=== PATIENT | female | born 1965 | race Caucasian/White ===

== ENCOUNTER 2019-07-29 07:11 | Inpatient (IN) | payer MEDICAID ==
[~2019-07-29 07:11] MED LIST: Acetaminophen 500 MG Tab PO ONE; Gabapentin 300 MG Cap PO ONE; Scopolamine 1.5 MG Transdermal Patch TRDERM ONE
[2019-07-29] MEDS: Lactated Ringers 1,000 ML IV SCH ×2 (08:30→18:46)
[2019-07-29] MEDS ORDERED: Tranexamic Acid 3,000 MG, Sodium Chloride 0.9% 100 ML IRR ONE ×2 (09:00)
[2019-07-29] MEDS ORDERED: Clindamycin in 0.9 % Sod Chlor 600 MG/50 ML BAG IV ONE (09:00)
[2019-07-29] MEDS ORDERED: Ropivacaine 49.25 ML, Ketorolac 30 MG, EPINEPHrine 0.5 MG, cloNIDine 80 MCG, Sodium Chl... INJECT SCH ×5 (09:00)
[2019-07-29] MEDS ORDERED: ceFAZolin 2 GM in Premix Bag 1 BAG IV ONE ×4 (09:00)
[2019-07-29] MEDS ORDERED: Ondansetron 4 MG/2 ML SDV IVPUSH PRN (09:26)
[2019-07-29] MEDS ORDERED: Zolpidem 5 MG Tab PO PRN (09:26)
[2019-07-29] MEDS ORDERED: Sodium Chloride 0.9% 10 ML Syringe FLUSH PRN (09:26)
[2019-07-29] MEDS ORDERED: Sennosides 8.6 MG Tab PO PRN (09:26)
[2019-07-29] MEDS ORDERED: Naloxone 0.4 MG/ML SDV IVPUSH PRN (09:26)
[2019-07-29] MEDS ORDERED: Albuterol 8 GM Inhaler INH PRN (09:31)
[2019-07-29] MEDS ORDERED: FLU Vacc QS2019-20(6MOS+)/PF 60 MCG/0.5 ML SYRINGE IM ONE (10:00)
[2019-07-29] MEDS ORDERED: THROMBIN 5000 UNIT ONE (12:00)
[2019-07-29] MEDS ORDERED: fentaNYL 25 MCG/HR Transdermal Patch TRDERM ONE (13:24)
[2019-07-29] MEDS ORDERED: Succinylcholine 200 MG/10 ML MDV IV ONE (13:24)
[2019-07-29] MEDS ORDERED: Phenylephrine 1% 10 MG/ML SDV IV ONE (13:24)
[2019-07-29] MEDS ORDERED: Midazolam 1 MG/ML 2 ML SDV IV ONE (13:24)
[2019-07-29] MEDS ORDERED: Ondansetron 4 MG/2 ML SDV IVPUSH ONE (13:24)
[2019-07-29] MEDS ORDERED: Glycopyrrolate 0.2 MG/ML 5 ML MDV IV ONE (13:24)
[2019-07-29] MEDS ORDERED: Neostigmine Methylsulfate 10 MG/10 ML MDV IVPUSH ONE (13:24)
[2019-07-29] MEDS ORDERED: Ketamine 500 mg/10 ML MDV IV ONE (13:24)
[2019-07-29] MEDS ORDERED: HYDROmorphone 2 MG/ML SDV IV ONE (13:24)
[2019-07-29] MEDS ORDERED: Propofol 200 MG/20 ML SDV IV ONE (13:24)
[2019-07-29] MEDS ORDERED: Dexamethasone 4 MG/ML 5 ML MDV IVPUSH ONE (13:24)
[2019-07-29] MEDS ORDERED: Rocuronium 100 MG/10 ML MDV IV ONE (13:24)
[2019-07-29] MEDS ORDERED: ePHEDrine 50 MG/ML SDV IV ONE (13:24)
[2019-07-29] MEDS ORDERED: Lactated Ringers 1,000 ML IV ONE (13:24)
[2019-07-29] MEDS ORDERED: Dexmedetomidine 200 MCG/2 ML SDV IV ONE (13:24)
--- NOTE | 2019-07-29 14:56 | PCM.OPNOTE ---
- General Post-Op/Procedure Note Date of Surgery/Procedure: 07/29/19 Operative Procedure(s): 1) posterolateral fusion L4-5, L5-S1. 2) hardware placement posterior L4-5, L5-S1. 3) laminectomy L4-5. 4) bilateral facetectomy L4-5 Pre Op Diagnosis: 1) central and foraminal stenosis L4-5. 2) previous fusion L5 -S1. 3) right L4 radiculopathy Post-Op Diagnosis: Same Anesthesia Technique: General ET Tube Primary Surgeon: Keron Nuñez Compliance Representative: Mildred Banda EBL in mLs: 700 Drain/Tube Comments:: christian [id number] wound vac Complications: None Condition: Good
[2019-07-29] MEDS: Ketorolac 30 MG/ML SDV IVPUSH SCH ×2 (15:13→23:18)
[2019-07-29] MEDS: Acetaminophen 500 MG Tab PO SCH ×2 (16:30→21:25)
[2019-07-29] MEDS: Morphine 2 MG/ML Syringe IVPUSH PRN ×3 (16:34→23:53)
[2019-07-29] MEDS: Gabapentin 600 MG Tab PO SCH ×2 (16:34→21:25)
--- NOTE | 2019-07-29 17:40 | CR ---
INDICATION: Guidance for spinal fusion. C-ARM IN OR, LESS THAN ONE HOUR: 0.2 minutes C-arm fluoroscopy time was utilized in OR during spinal fusion. Frontal and lateral images were obtained and showed bilateral pedicle screws and rods with two rods and six screws appearing intact with no evidence of a definite complicating process. A disc spacer is noted at the L5-S1 level. Grade 1 to 2 spondylolisthesis is noted at L5-S1. No comparison x-rays were available. [facility]
[2019-07-29] MEDS: Acetaminophen/oxyCODONE 325-5 MG Tab PO PRN (18:46)
[2019-07-29] MEDS: ceFAZolin 1 GM Vial IVPUSH SCH (18:47)
[2019-07-30] MEDS: ceFAZolin 1 GM Vial IVPUSH SCH (01:59)
[2019-07-30] MEDS: Lactated Ringers 1,000 ML IV SCH ×2 (02:52→11:39)
[2019-07-30] MEDS: Acetaminophen 500 MG Tab PO SCH ×4 (04:48→21:54)
[2019-07-30] MEDS: Acetaminophen/oxyCODONE 325-5 MG Tab PO PRN ×4 (04:48→22:17)
[2019-07-30] MEDS: Morphine 2 MG/ML Syringe IVPUSH PRN ×4 (06:56→20:15)
--- NOTE | 2019-07-30 07:45 | OR ---
DATE OF OPERATION: 07/29/2019 SURGEON: Keron Nuñez DO PREOPERATIVE DIAGNOSIS: 1. Previous lumbar fusion, L5-S1. 2. Bilateral foraminal stenosis, L4-5. 3. Bilateral lateral recess stenosis, L4-5. 4. Central stenosis, L4-5. 5. Right L4 radiculopathy. POSTOPERATIVE DIAGNOSIS: 1. Previous lumbar fusion, L5-S1. 2. Bilateral foraminal stenosis, L4-5. 3. Bilateral lateral recess stenosis, L4-5. 4. Central stenosis, L4-5. 5. Right L4 radiculopathy. PROCEDURES: 1. Posterolateral fusion, L4-5 and L5-S1. 2. Instrumentation, L4-5 and L5-S1. 3. Lumbar decompression, L4-5. 4. Bilateral facetectomy, L4-5. SHELL MACHINE OPERATOR: Mildred Banda NP. Nurse practitioner, Mildred Banda NP, played an essential role in assisting in this case, helping to position the patient, retract structures as needed, as well as suturing and cutting sutures as indicated. Her presence improved patient's safety and decreased operative time. ANESTHESIA: General endotracheal intubation. FLUID: Lactated Ringer solution. ESTIMATED BLOOD LOSS: 700 mL. COMPLICATIONS: None. SPECIMEN: None. DISCHARGE DISPOSITION: Stable to PACU. INDICATIONS FOR PROCEDURE: The patient was seen preoperatively in the clinic. She had failed nonoperative treatment. Preoperative imaging confirmed the above- mentioned diagnosis. Risks and benefits of the procedure were explained to the patient, and informed consent was obtained. DETAILS OF PROCEDURE: The patient was seen preoperatively by myself and the Anesthesia staff in the preoperative holding area where the operative site was marked. She was brought to the operative suite by Anesthesia staff, where general anesthesia was administered. Neuromonitoring leads were placed preoperatively, and the baseline was normal. Sterile Prabhakar catheter was placed. The patient was then rolled into a prone position on a Varinder table with the head slightly elevated and the spine in the bed slightly flexed. The back was then prepped and draped in a sterile manner. A time-out was called identifying the correct patient, correct procedure, correct site, and the antibiotics had begun within appropriate period of time. Sterilely draped fluoroscopy unit then identified the pedicles of L4-L5 and L5- S1, as well as instrumentation. A midline incision was then made just proximal to the L4 and then down to the S1. Bleeding was controlled with Bovie electrocautery. Two cerebellars were used for initial retraction. The fascia was then incised with Bovie electrocautery. The L3 and L4 spinous processes were then identified. Bovie electrocautery was used with a Ramos for dissection over the L3 and L4 spinous processes, respective lamina, facets, and down to the transverse process of L4. We then went lateral to avoid any dural involvement and then encountered the screws at L4 and L5. I then used 65 and 55 mm Versa- Trac retractors and then cleaned soft tissue over the previous screws and rods and cleaned the soft tissue off the L4 vertebral body facet at L4-5 transverse processes. After this had been accomplished, I then drilled down the facets at L4-5 bilaterally and then placed pedicle screws using the Mayauard. These were 6.5 x 45 mm. These confirmed to be good placement on fluoroscopy. I then removed the previous Expedium screws at L5 and S1 and replaced those with Globus 6.5 x 40 screws at L5 and 6.5 x 35 mm screws at S1. After that had been accomplished, we focused on laminectomy. I saved all the bone for graft and then removed the entirety of the spinous processes of L4 and at the lamina and then very carefully removed the superior and inferior facet on the left and right L4-5. This was done with the drill, Kerrison rongeurs, and pituitaries. Unfortunately, the entire area was covered by scar tissue, which I believe was the result of the previous laminectomy and fusion. For this reason, I was unable to encounter disk space on the left to right. I did feel that my compression was adequate given the central decompression, as well as facetectomies. On the right side, I did encounter a small durotomy while using a Kerrison rongeur. I tucked one of the nerve roots back inside the durotomy defect and then closed with 7-0 [place]-Roberto in an interlocking manner. I then sprayed DuraSeal across this and did a Valsalva maneuver, which was negative. We then cleaned areas around our screws, which were Creo Amp, and then placed my tulips and then 55 mm rods bilaterally. These were 5.5 mm x 55 mm. We then tightened these to final tension and took final films. I then copiously irrigated with 3 L Betadine irrigation. I placed some Gelfoam powder in the wound plus 0.5 g of vancomycin under the fascia, and then placed copious amount of graft bilaterally. We then closed in a watertight manner the fascia with #1 Stratafix followed by another liter of Betadine-infused irrigation, periarticular injection, another 0.5 g of vancomycin, Stratafix, then 3-0 Stratafix followed by placement of a DIEUDONNE 10 x 20 cm wound VAC. The patient was allowed to awaken from general anesthesia and taken to the PACU in stable condition. /[id number] BS/MODL
[2019-07-30] MEDS: amLODIPine 2.5 MG Tab PO SCH (09:00)
[2019-07-30] MEDS: Atenolol 50 MG Tab PO SCH (09:00)
[2019-07-30] MEDS: Gabapentin 600 MG Tab PO SCH ×3 (09:20→20:12)
[2019-07-30] MEDS: DULoxetine 60 MG Cap PO SCH (09:20)
[2019-07-30] MEDS: LORazepam 1 MG Tab PO PRN (13:08)
--- NOTE | 2019-07-30 13:35 | PCM.PN ---
- General Info Date of Service: 07/30/19 Functional Status: Reports: Tolerating Diet Pain Score: 7 (catheter still in, not ambulating yet) - Review of Systems Pulmonary: Reports: No Symptoms Cardiovascular: Reports: No Symptoms Gastrointestinal: Reports: No Symptoms Musculoskeletal: Reports: Back Pain Skin: Reports: No Symptoms, Other (DIEUDONNE wound vac in place and functioning properly) Psychiatric: Reports: Anxiety (Very anxious about not ambulating yet.) - Patient Data Vitals - Most Recent: Last Vital Signs Temp 36.6 C 07/30/19 08:00 Pulse 97 07/30/19 09:00 Resp 16 07/30/19 08:00 BP 96/49 L 07/30/19 09:00 Pulse Ox 96 07/30/19 08:00 Weight - Most Recent: 57.924 kg I&O - Last 24 Hours: Intake & Output 07/29/19 07/30/19 07/30/19 22:59 06:59 14:59 Intake Total 1710 200 Output Total 1550 1050 Balance 160 -850 Lab Results Last 24 Hours: Laboratory Results - last 24 hr 07/30/19 07/30/19 Range/Units 06:30 06:30 WBC 12.3 H (4.5-12.0) X10-3/uL RBC 2.47 L (3.23-5.20) x10(6)uL Hgb 7.3 L (11.5-15.5) g/dL Hct 21.9 L* (30.0-51.3) % MCV 88.4 (80-96) fL MCH 29.6 (27.7-33.6) pg MCHC 33.4 (32.2-35.4) g/dL RDW 15.2 (11.5-15.5) % Plt Count 361 (125-369) X10(3)uL MPV 6.9 L (7.4-10.4) fL Add Manual Diff Yes Neutrophils % (Manual) 64 (46-82) % Band Neutrophils % 1 (0-6) % Lymphocytes % (Manual) 27 (13-37) % Monocytes % (Manual) 8 (4-12) % Sodium 146 H (135-145) mmol/L Potassium 4.5 (3.5-5.3) mmol/L Chloride 109 (100-110) mmol/L Carbon Dioxide 29 (21-32) mmol/L BUN 16 (7-18) mg/dL Creatinine 0.8 (0.55-1.02) mg/dL Est Cr Clr Drug Dosing 57.74 mL/min Estimated GFR (MDRD) > 60 (>60) BUN/Creatinine Ratio 20.0 (9-20) Glucose 104 (80-116) mg/dL Calcium 8.3 L (8.6-10.2) mg/dL Med Orders - Current: Current Medications Acetaminophen (Tylenol Extra Strength) 500 mg PO Q6H [facility] Last Admin: 07/30/19 09:20 Dose: 500 mg Albuterol (Ventolin Hfa) 0 gm INH Q4H PRN PRN Reason: Wheezing Amlodipine Besylate (Norvasc) 2.5 mg PO DAILY [facility] Last Admin: 07/30/19 09:00 Dose: Not Given Atenolol (Tenormin) 50 mg PO DAILY [facility] Last Admin: 07/30/19 09:00 Dose: Not Given Ropivacaine 49.25 ml/Ketorolac Tromethamine 30 mg/Epinephrine HCl 0.5 mg/ Clonidine HCl 80 mcg/ Sodium Chloride 48.45 ml 0 ml INJECT ASDIRECTED [facility] Last Admin: 07/29/19 12:20 Dose: 100 syringe Duloxetine HCl (Cymbalta) 60 mg PO DAILY [facility] Last Admin: 07/30/19 09:20 Dose: 60 mg Gabapentin (Neurontin) 600 mg PO TID [facility] Last Admin: 07/30/19 13:08 Dose: 600 mg Lorazepam (Ativan) 1 mg PO Q6H PRN PRN Reason: Anxiety Last Admin: 07/30/19 13:08 Dose: 1 mg Magnesium Hydroxide (Milk Of Magnesia) 30 ml PO BID PRN PRN Reason: Constipation Morphine Sulfate (Morphine) 2 mg IVPUSH Q2H PRN PRN Reason: PAIN Last Admin: 07/30/19 09:25 Dose: 2 mg Naloxone HCl (Narcan) 0.2 mg IVPUSH ONETIME PRN PRN Reason: Oversedation Ondansetron HCl (Zofran) 8 mg IVPUSH Q4H PRN PRN Reason: Nausea/Vomiting Oxycodone/Acetaminophen (Percocet 325-5 Mg) 1 tab PO Q4H PRN PRN Reason: moderate pain 4-6 Last Admin: 07/30/19 11:42 Dose: 1 tab Senna (Senna) 8.6 mg PO BID PRN PRN Reason: Constipation Sodium Chloride (Saline Flush) 10 ml FLUSH ASDIRECTED PRN PRN Reason: Keep Vein Open [facility] Zolpidem Tartrate (Ambien) 5 mg PO BEDTIME PRN PRN Reason: Sleep Discontinued Medications Acetaminophen (Tylenol Extra Strength) 1,000 mg PO ONETIME ONE Stop: 07/29/19 07:01 Last Admin: 07/29/19 08:58 Dose: 1,000 mg Cefazolin Sodium (Ancef) 1 gm IVPUSH Q8H [facility] Stop: 07/30/19 02:01 Last Admin: 07/30/19 01:59 Dose: 1 gm Tranexamic Acid 3,000 mg/ (Sodium Chloride 100 ml) 0 mg IRR ONETIME ONE Stop: 07/29/19 09:01 Last Admin: 07/29/19 12:23 Dose: 100 irr Gabapentin (Neurontin) 300 mg PO ONETIME ONE Stop: 07/29/19 07:01 Last Admin: 07/29/19 08:58 Dose: 300 mg Cefazolin Sodium/Dextrose 2 gm (/ Premix) 50 mls @ 100 mls/hr IV ONETIME ONE Stop: 07/29/19 09:29 Lactated Ringer's (Ringers, Lactated) 1,000 mls @ 125 mls/hr IV ASDIRECTED [facility] Last Admin: 07/30/19 11:39 Dose: 125 mls/hr Cefazolin Sodium/Dextrose 2 gm (/ Premix) 50 mls @ 100 mls/hr IV ONETIME ONE Stop: 07/29/19 09:29 Last Admin: 07/29/19 09:58 Dose: 100 mls/hr Influenza Virus Vaccine (Fluzone Quad [id number] Syringe) 60 mcg IM .ONCE ONE Stop: 07/29/19 10:01 Ketorolac Tromethamine (Toradol) 30 mg IVPUSH Q8H [facility] Stop: 07/29/19 23:16 Last Admin: 07/29/19 23:18 Dose: 30 mg Scopolamine (Transderm-Scop) 1.5 mg TRDERM ONETIME ONE Stop: 07/29/19 07:01 Last Admin: 07/29/19 08:58 Dose: 1.5 mg Thrombin (Thrombin-Jmi) 20,000 unit .XX .STK-MED ONE Stop: 07/29/19 13:47 Last Admin: 07/29/19 13:46 Dose: 20,000 unit Thrombin (Recothrom) 15,000 unit .XX .STK-MED ONE Stop: 07/29/19 12:01 Last Admin: 07/29/19 12:00 Dose: 15,000 unit - Exam General: Alert, Oriented, Cooperative HEENT: Pupils Equal Lungs: Clear to Auscultation, Normal Respiratory Effort Cardiovascular: Regular Rate, Regular Rhythm Back Exam: Paraspinal Tenderness (bilaterally, worse on the left with mild swelling and slightly more swelling on steph left than right), Vertebral Tenderness, Other (decreased range of motion related to post-op status) Extremities: Normal Inspection, Normal Range of Motion, Non-Tender, No Pedal Edema, Normal Capillary Refill, Other (No radiating leg pain today) Peripheral Pulses: 2+: Dorsalis Pedis (L), Dorsalis Pedis (R) Skin: Warm, Dry, Intact Wound/Incisions: Other (DIEUDONNE wound vac in place and appears to be functioning properly) Neurological: No New Focal Deficit, Strength Equal Bilateral (lower extremities- able to lift off the bed with good strength), Reflexes Equal Bilateral, Sensation Intact Psy/Mental Status: Alert, Anxious Sepsis Event Note - Evaluation Sepsis Screening Result: No Definite Risk - Focused Exam Vital Signs: Vital Signs Temp Temp Pulse Pulse Resp BP BP 07/30/19 09:00 97 96/49 L 07/30/19 08:00 36.6 C 97 16 96/64 07/30/19 04:45 37.2 C 90 16 95/64 Pulse Ox 07/30/19 09:00 07/30/19 08:00 96 07/30/19 04:45 94 L Date Exam was Performed: 07/30/19 Time Exam was Performed: 13:51 - Problem List & Annotations (1) Back pain SNOMED Code(s): 591198155 Code(s): M54.9 - DORSALGIA, UNSPECIFIED Status: Acute Current Visit: Yes Qualifiers: Back pain location: low back pain - Problem List Review Problem List Initiated/Reviewed/Updated: Yes - My Orders Last 24 Hours: My Active Orders 07/30/19 12:55 LORazepam [Ativan] 1 mg PO Q6H PRN - Assessment Assessment:: Patient did not tolerate ambulating during exam. Notified nursing not to have patient up until she has been seen by physical therapy and they have fitted her brace. Physical Therapy is also aware of this plan. Patient was very anxious after she was unable to take any steps and she felt like her legs buckled under her and has not been able to calm down afterward for 15-20 minutes; started oral Ativan PRN for anxiety; nursing and Dr. Nuñez notified. - Plan Plan:: No other changes to medications or treatment plan at this time. Wear LSO brace ( clarified correct brace with nursing and PT), take pain medication and ativan or valium as needed for anxiety.
[2019-07-30] MEDS: Sodium Chloride 0.9% 10 ML Syringe FLUSH PRN ×2 (14:31→20:16)
[2019-07-31] MEDS: Morphine 2 MG/ML Syringe IVPUSH PRN ×3 (00:01→21:33)
[2019-07-31] MEDS: Sodium Chloride 0.9% 10 ML Syringe FLUSH PRN ×3 (00:01→08:20)
[2019-07-31] MEDS: Acetaminophen/oxyCODONE 325-5 MG Tab PO PRN ×4 (03:05→17:09)
[2019-07-31] MEDS: Acetaminophen 500 MG Tab PO SCH ×4 (03:50→21:32)
[2019-07-31] MEDS ORDERED: Sodium Chloride 0.9% 250 ML IV SCH (07:45)
[2019-07-31] MEDS ORDERED: Vancomycin 1 GM SDV IV SCH (08:00)
[2019-07-31] MEDS: Vancomycin/Dextrose 5%-Water 200 ML IV SCH ×2 (08:19→19:32)
--- NOTE | 2019-07-31 09:26 | PCM.CONS ---
H&P History of Present Illness - General Date of Service: 07/31/19 Admit Problem/Dx: Admission Diagnosis/Problem Admission Diagnosis/Problem Lumbar spinal fusion Source of Information: Patient History Limitations: Reports: No Limitations - History of Present Illness Initial Comments - Free Text/Narative: This is a 53-year-old female patient that 2 days ago underwent a spinal fusion by Dr. Nuñez. She had a fever last night was some night sweats. This is the first time she's had anything like this. She states she does have some abdominal pain but has not moved her bowels. She has a history constipation with IBS and takes Lizzess for this issue. She is not currently on her medication. She denies sore throat, ear pain, nasal congestion, diarrhea, vaginal discharge this abnormal. She does have a cough. She is a smoker and is always has a cough she says is a little black. She's not smoked in about 3 weeks. She said when she was walking yesterday her legs gave out and since then she's had a little bit more back pain. She thinks the abdominal pain some constipation which is making the back pain little worse. She denies any rashes anywhere. The patient states she used to have frequent UTIs until she had hysterectomy at age 33. But she's been okay after that. Lower Back Pain Score (Numeric/FACES): 7 - Related Data Allergies/Adverse Reactions: Allergies Allergy/AdvReac Type Severity Reaction Status Date / Time amoxicillin [From Augmentin] Allergy Vomiting Verified 07/29/19 07:35 clavulanic acid Allergy Vomiting Verified 07/29/19 07:35 [From Augmentin] Home Medications: Home Meds Atenolol [Tenormin] 50 mg PO DAILY 07/25/19 [History] amLODIPine [Norvasc] 2.5 mg PO DAILY 07/25/19 [History] Albuterol [Ventolin HFA] 2 puff PO Q4HR PRN 07/29/19 [History] Clindamycin HCl 150 mg PO TID 07/29/19 [History] DULoxetine [Cymbalta] 60 mg PO DAILY 07/29/19 [History] Gabapentin [Neurontin] 600 mg PO TID 07/29/19 [History] Linaclotide [Linzess] 290 mcg PO DAILY 01/20/20 [History] Varenicline [Chantix] 1 mg PO BID 07/29/19 [History] Past Medical History Cardiovascular History: Reports: High Cholesterol, Hypertension Respiratory History: Reports: Bronchitis, Recurrent Gastrointestinal History: Reports: Irritable Bowel Syndrome [employer] History: Reports: - Infectious Disease History Infectious Disease History: Reports: Chicken Pox, Measles - Past Surgical History Female Surgical History: Reports: Section, Hysterectomy, Tubal Ligation, Other (See Below) Other Female Surgeries/Procedures: BLADDER SURGERIES X 3 ("TUBES PULLED TWICE , CUT ONCE) Musculoskeletal Surgical History: Reports: Other (See Below) Other Musculoskeletal Surgeries/Procedures:: FUSION LUMBAR THORACIC SPINE- TRANSFORAMINAL LUMBAR INTERBODY FUSION Social & Family History - Tobacco Use Smoking Status *Q: Former Smoker Years of Tobacco use: 40 Packs/Tins Daily: 1 Used Tobacco, but Quit: Yes Month/Year Tobacco Last Used: JULY 2019 Second Hand Smoke Exposure: Yes - Caffeine Use Caffeine Use: Reports: Soda - Recreational Drug Use Recreational Drug Use: Yes Drug Use in Last 12 Months: Yes Recreational Drug Type: Reports: Marijuana/Hashish Recreational Drug Use Frequency: Daily H&P Review of Systems - Review of Systems: Review Of Systems: See Below General: Reports: Fever, Night Sweats HEENT: Reports: No Symptoms Pulmonary: Reports: Cough, Sputum. Denies: Shortness of Breath Cardiovascular: Reports: No Symptoms Gastrointestinal: Reports: Constipation. Denies: Bloody Stool Genitourinary: Reports: No Symptoms Musculoskeletal: Reports: Back Pain Skin: Reports: No Symptoms Psychiatric: Reports: No Symptoms Neurological: Reports: No Symptoms Hematologic/Lymphatic: Reports: No Symptoms Immunologic: Reports: No Symptoms Exam - Exam Exam: See Below - Vital Signs Vital Signs: Last Vital Signs Temp 99.6 F 07/31/19 08:00 Pulse 118 H 07/31/19 08:00 Resp 16 07/31/19 08:00 BP 136/75 07/31/19 08:00 Pulse Ox 94 L 07/31/19 08:00 Weight: 127 lb 11.2 oz - Exam General: Alert, Oriented, Cooperative HEENT: Hearing Intact, Posterior Pharynx Clear, TMs Clear Neck: Supple, Trachea Midline Lungs: Clear to Auscultation, Normal Respiratory Effort. No: Crackles, Rales, Rhonchi Cardiovascular: Regular Rate, Regular Rhythm, Tachycardia. No: Systolic Murmur GI/Abdominal Exam: Distended, Other (General pain of discomfort without rebound or guarding. Pains, all over.) Back Exam: Normal Inspection Extremities: No Pedal Edema Skin: Other (The remove the wound VAC and the wound is healing nicely without any erythema or drainage). No: Rash Neurological: Normal Speech, Normal Tone Neuro Extensive - Mental Status: Alert, Oriented x3, Normal Mood/Affect, Normal Cognition, Memory Intact Psychiatric: Alert, Normal Affect, Normal Mood - Patient Data Lab Results Last 24 hrs: Laboratory Results - last 24 hr 07/29/19 07/31/19 07/31/19 Range/Units 08:20 06:10 06:10 WBC 13.2 H (4.5-12.0) X10-3/uL RBC 2.63 L (3.23-5.20) x10(6)uL Hgb 7.7 L (11.5-15.5) g/dL Hct 23.2 L (30.0-51.3) % MCV 88.1 (80-96) fL MCH 29.3 (27.7-33.6) pg MCHC 33.2 (32.2-35.4) g/dL RDW 16.0 H (11.5-15.5) % Plt Count 361 (125-369) X10(3)uL MPV 7.2 L (7.4-10.4) fL Neut % (Auto) 83.3 H (46-82) % Lymph % (Auto) 10.9 L (13-37) % [place] % (Auto) 4.9 (4-12) % Eos % (Auto) 1 (1.0-5.0) % Baso % (Auto) 0 (0-2) % Neut # (Auto) 11.1 H (1.6-8.3) # Lymph # (Auto) 1.4 (0.6-5.0) # [place] # (Auto) 0.6 (0.0-1.3) # Eos # (Auto) 0.1 (0.0-0.8) # Baso # (Auto) 0.0 (0.0-0.2) # Sodium 139 (135-145) mmol/L Potassium 3.9 (3.5-5.3) mmol/L Chloride 100 D (100-110) mmol/L Carbon Dioxide 34 H (21-32) mmol/L BUN 10 (7-18) mg/dL Creatinine 0.7 (0.55-1.02) mg/dL Est Cr Clr Drug Dosing 65.99 mL/min Estimated GFR (MDRD) > 60 (>60) BUN/Creatinine Ratio 14.3 (9-20) Glucose 123 H (80-116) mg/dL Lactic Acid (0.4-2.0) mmol/L Calcium 8.8 (8.6-10.2) mg/dL Blood Type A POSITIVE Gel Antibody Screen Negative Crossmatch See Detail 07/31/19 Range/Units 07:35 WBC (4.5-12.0) X10-3/uL RBC (3.23-5.20) x10(6)uL Hgb (11.5-15.5) g/dL Hct (30.0-51.3) % MCV (80-96) fL MCH (27.7-33.6) pg MCHC (32.2-35.4) g/dL RDW (11.5-15.5) % Plt Count (125-369) X10(3)uL MPV (7.4-10.4) fL Neut % (Auto) (46-82) % Lymph % (Auto) (13-37) % [place] % (Auto) (4-12) % Eos % (Auto) (1.0-5.0) % Baso % (Auto) (0-2) % Neut # (Auto) (1.6-8.3) # Lymph # (Auto) (0.6-5.0) # Florence # (Auto) (0.0-1.3) # Eos # (Auto) (0.0-0.8) # Baso # (Auto) (0.0-0.2) # Sodium (135-145) mmol/L Potassium (3.5-5.3) mmol/L Chloride (100-110) mmol/L Carbon Dioxide (21-32) mmol/L BUN (7-18) mg/dL Creatinine (0.55-1.02) mg/dL Est Cr Clr Drug Dosing mL/min Estimated GFR (MDRD) (>60) BUN/Creatinine Ratio (9-20) Glucose (80-116) mg/dL Lactic Acid 1.3 (0.4-2.0) mmol/L Calcium (8.6-10.2) mg/dL Blood Type Gel Antibody Screen Crossmatch Result Diagrams: 07/31/19 06:10 07/31/19 06:10 Sepsis Event Note - Evaluation Sepsis Screening Result: No Definite Risk - Focused Exam Vital Signs: Vital Signs Temp Temp Pulse Resp BP Pulse Ox 07/31/19 08:00 99.6 F 118 H 16 136/75 94 L 07/31/19 06:57 102.3 F H 07/31/19 03:59 100.5 F 110 H 18 134/63 93 L 07/31/19 00:00 99.4 F 106 H 18 147/62 H 92 L Date Exam was Performed: 07/31/19 Time Exam was Performed: 09:21 Consult PN Assessment/Plan (1) Fusion of lumbar spine SNOMED Code(s): 213610831 Code(s): M43.26 - FUSION OF SPINE, LUMBAR REGION Current Visit: Yes (2) Postoperative fever SNOMED Code(s): 704579531 Code(s): R50.82 - POSTPROCEDURAL FEVER Current Visit: Yes (3) Constipation SNOMED Code(s): 56541710 Code(s): K59.00 - CONSTIPATION, UNSPECIFIED Current Visit: Yes (4) Abdominal distention SNOMED Code(s): 04815663 Code(s): R14.0 - ABDOMINAL DISTENSION (GASEOUS) Current Visit: Yes (5) Back pain SNOMED Code(s): 465837422 Code(s): M54.9 - DORSALGIA, UNSPECIFIED Current Visit: Yes Qualifiers: Back pain location: low back pain Problem List Initiated/Reviewed/Updated: Yes My Orders Last 24 Hours: My Active Orders 07/31/19 09:20 CXR [Chest 2V] [CR] Routine Plan: 1. I believe abdominal distention discomfort is from constipation. Recommend either start Mairan says or proceed to MiraLAX. 2. Proceed with a chest x-ray and a UA today. 3. Blood cultures were ordered lactate and CBC were reviewed 4. Patient will get RBCs per Dr. Nuñez today. 5. The wound looks good today. 6. I ordered the chest x-ray and a UA. Dr. Nuñez order other labs, blood transfusions and fluids. 7. Will follow
[2019-07-31] MEDS: amLODIPine 2.5 MG Tab PO SCH (09:44)
[2019-07-31] MEDS: DULoxetine 60 MG Cap PO SCH (09:44)
[2019-07-31] MEDS: Atenolol 50 MG Tab PO SCH (09:44)
[2019-07-31] MEDS: Gabapentin 600 MG Tab PO SCH ×3 (10:03→20:12)
[2019-07-31] MEDS ORDERED: Sodium Chloride 0.9% 10 ML SDV IV STA (10:06)
--- NOTE | 2019-07-31 10:35 | PCM.PN ---
- General Info Date of Service: 07/31/19 Subjective Update: Patient reports she is feeling well, except for her pain. She is having back pain and some abdominal pain. She states she has not had a bowel movement since Monday; normally takes 290mg of Linzess daily. Functional Status: Reports: Tolerating Diet Pain Score: 6 (back pain and abdominal pain) - Review of Systems General: Reports: Fever (No fever currently, but did run a fever earlier this morning and have sweats last night. No weakness) HEENT: Reports: No Symptoms Pulmonary: Reports: No Symptoms Cardiovascular: Reports: No Symptoms Gastrointestinal: Reports: Abdominal Pain, Constipation Genitourinary: Reports: No Symptoms Musculoskeletal: Reports: Back Pain Skin: Reports: No Symptoms, Other (no rash or cyanosis) Neurological: Reports: Weakness (Still has some mild left leg weakness) Psychiatric: Reports: Anxiety - Patient Data Vitals - Most Recent: Last Vital Signs Temp 37.3 C 07/31/19 10:15 Pulse 101 H 07/31/19 10:15 Resp 16 07/31/19 10:15 BP 107/61 07/31/19 10:15 Pulse Ox 94 L 07/31/19 08:00 Weight - Most Recent: 57.924 kg I&O - Last 24 Hours: Intake & Output 07/30/19 07/31/19 07/31/19 22:59 06:59 14:59 Intake Total 650 450 0 Output Total 1475 825 Balance -825 -375 0 Lab Results Last 24 Hours: Laboratory Results - last 24 hr 07/29/19 07/31/19 07/31/19 Range/Units 08:20 06:10 06:10 WBC 13.2 H (4.5-12.0) X10-3/uL RBC 2.63 L (3.23-5.20) x10(6)uL Hgb 7.7 L (11.5-15.5) g/dL Hct 23.2 L (30.0-51.3) % MCV 88.1 (80-96) fL MCH 29.3 (27.7-33.6) pg MCHC 33.2 (32.2-35.4) g/dL RDW 16.0 H (11.5-15.5) % Plt Count 361 (125-369) X10(3)uL MPV 7.2 L (7.4-10.4) fL Neut % (Auto) 83.3 H (46-82) % Lymph % (Auto) 10.9 L (13-37) % [place] % (Auto) 4.9 (4-12) % Eos % (Auto) 1 (1.0-5.0) % Baso % (Auto) 0 (0-2) % Neut # (Auto) 11.1 H (1.6-8.3) # Lymph # (Auto) 1.4 (0.6-5.0) # [place] # (Auto) 0.6 (0.0-1.3) # Eos # (Auto) 0.1 (0.0-0.8) # Baso # (Auto) 0.0 (0.0-0.2) # Sodium 139 (135-145) mmol/L Potassium 3.9 (3.5-5.3) mmol/L Chloride 100 D (100-110) mmol/L Carbon Dioxide 34 H (21-32) mmol/L BUN 10 (7-18) mg/dL Creatinine 0.7 (0.55-1.02) mg/dL Est Cr Clr Drug Dosing 65.99 mL/min Estimated GFR (MDRD) > 60 (>60) BUN/Creatinine Ratio 14.3 (9-20) Glucose 123 H (80-116) mg/dL Lactic Acid (0.4-2.0) mmol/L Calcium 8.8 (8.6-10.2) mg/dL Blood Type A POSITIVE Gel Antibody Screen Negative Crossmatch See Detail 07/31/19 Range/Units 07:35 WBC (4.5-12.0) X10-3/uL RBC (3.23-5.20) x10(6)uL Hgb (11.5-15.5) g/dL Hct (30.0-51.3) % MCV (80-96) fL MCH (27.7-33.6) pg MCHC (32.2-35.4) g/dL RDW (11.5-15.5) % Plt Count (125-369) X10(3)uL MPV (7.4-10.4) fL Neut % (Auto) (46-82) % Lymph % (Auto) (13-37) % [place] % (Auto) (4-12) % Eos % (Auto) (1.0-5.0) % Baso % (Auto) (0-2) % Neut # (Auto) (1.6-8.3) # Lymph # (Auto) (0.6-5.0) # [place] # (Auto) (0.0-1.3) # Eos # (Auto) (0.0-0.8) # Baso # (Auto) (0.0-0.2) # Sodium (135-145) mmol/L Potassium (3.5-5.3) mmol/L Chloride (100-110) mmol/L Carbon Dioxide (21-32) mmol/L BUN (7-18) mg/dL Creatinine (0.55-1.02) mg/dL Est Cr Clr Drug Dosing mL/min Estimated GFR (MDRD) (>60) BUN/Creatinine Ratio (9-20) Glucose (80-116) mg/dL Lactic Acid 1.3 (0.4-2.0) mmol/L Calcium (8.6-10.2) mg/dL Blood Type Gel Antibody Screen Crossmatch Med Orders - Current: Current Medications Acetaminophen (Tylenol Extra Strength) 500 mg PO Q6H [facility] Last Admin: 07/31/19 09:44 Dose: 500 mg Albuterol (Ventolin Hfa) 0 gm INH Q4H PRN PRN Reason: Wheezing Amlodipine Besylate (Norvasc) 2.5 mg PO DAILY [facility] Last Admin: 07/31/19 09:44 Dose: 2.5 mg Atenolol (Tenormin) 50 mg PO DAILY [facility] Last Admin: 07/31/19 09:44 Dose: 50 mg Duloxetine HCl (Cymbalta) 60 mg PO DAILY [facility] Last Admin: 07/31/19 09:44 Dose: 60 mg Gabapentin (Neurontin) 600 mg PO TID [facility] Last Admin: 07/31/19 10:03 Dose: 600 mg Vancomycin HCl (Vancomycin 1 Gm/200 Ml In D5w) 200 mls @ 200 mls/hr IV Q12H [facility] Last Admin: 07/31/19 08:19 Dose: 200 mls/hr Sodium Chloride (Normal Saline) 250 mls @ 100 mls/hr IV ASDIRECTED [facility] Sodium Chloride (Normal Saline) 1,000 mls @ 125 mls/hr IV ASDIRECTED [facility] Lorazepam (Ativan) 1 mg PO Q6H PRN PRN Reason: Anxiety Last Admin: 07/31/19 00:00 Dose: 1 mg Magnesium Hydroxide (Milk Of Magnesia) 30 ml PO BID PRN PRN Reason: Constipation Morphine Sulfate (Morphine) 2 mg IVPUSH Q2H PRN PRN Reason: PAIN Last Admin: 07/31/19 03:50 Dose: 2 mg Naloxone HCl (Narcan) 0.2 mg IVPUSH ONETIME PRN PRN Reason: Oversedation Ondansetron HCl (Zofran) 8 mg IVPUSH Q4H PRN PRN Reason: Nausea/Vomiting Oxycodone/Acetaminophen (Percocet 325-5 Mg) 1 tab PO Q4H PRN PRN Reason: moderate pain 4-6 Last Admin: 07/31/19 08:08 Dose: 1 tab Senna (Senna) 8.6 mg PO BID PRN PRN Reason: Constipation Sodium Chloride (Saline Flush) 10 ml FLUSH ASDIRECTED PRN PRN Reason: Keep Vein Open Last Admin: 07/31/19 08:20 Dose: 10 ml Vancomycin HCl (Vancomycin) 1 gm IV .PHARMACY TO DOSE [facility] Last Admin: 07/31/19 09:44 Dose: 1 mg Zolpidem Tartrate (Ambien) 5 mg PO BEDTIME PRN PRN Reason: Sleep Discontinued Medications Acetaminophen (Tylenol Extra Strength) 1,000 mg PO ONETIME ONE Stop: 07/29/19 07:01 Last Admin: 07/29/19 08:58 Dose: 1,000 mg Cefazolin Sodium (Ancef) 1 gm IVPUSH Q8H [facility] Stop: 07/30/19 02:01 Last Admin: 07/30/19 01:59 Dose: 1 gm Ropivacaine 49.25 ml/Ketorolac Tromethamine 30 mg/Epinephrine HCl 0.5 mg/ Clonidine HCl 80 mcg/ Sodium Chloride 48.45 ml 0 ml INJECT ASDIRECTED [facility] Last Admin: 07/29/19 12:20 Dose: 100 syringe Tranexamic Acid 3,000 mg/ (Sodium Chloride 100 ml) 0 mg IRR ONETIME ONE Stop: 07/29/19 09:01 Last Admin: 07/29/19 12:23 Dose: 100 irr Gabapentin (Neurontin) 300 mg PO ONETIME ONE Stop: 07/29/19 07:01 Last Admin: 07/29/19 08:58 Dose: 300 mg Cefazolin Sodium/Dextrose 2 gm (/ Premix) 50 mls @ 100 mls/hr IV ONETIME ONE Stop: 07/29/19 09:29 Lactated Ringer's (Ringers, Lactated) 1,000 mls @ 125 mls/hr IV ASDIRECTED [facility] Last Admin: 07/30/19 11:39 Dose: 125 mls/hr Cefazolin Sodium/Dextrose 2 gm (/ Premix) 50 mls @ 100 mls/hr IV ONETIME ONE Stop: 07/29/19 09:29 Last Admin: 07/29/19 09:58 Dose: 100 mls/hr Influenza Virus Vaccine (Fluzone Quad 6510-5616 Syringe) 60 mcg IM .ONCE ONE Stop: 07/29/19 10:01 Ketorolac Tromethamine (Toradol) 30 mg IVPUSH Q8H [facility] Stop: 07/29/19 23:16 Last Admin: 07/29/19 23:18 Dose: 30 mg Scopolamine (Transderm-Scop) 1.5 mg TRDERM ONETIME ONE Stop: 07/29/19 07:01 Last Admin: 07/29/19 08:58 Dose: 1.5 mg Thrombin (Thrombin-Jmi) 20,000 unit .XX .STK-MED ONE Stop: 07/29/19 13:47 Last Admin: 07/29/19 13:46 Dose: 20,000 unit Thrombin (Recothrom) 15,000 unit .XX .STK-MED ONE Stop: 07/29/19 12:01 Last Admin: 07/29/19 12:00 Dose: 15,000 unit - Exam General: Alert, Oriented, Cooperative, Mild Distress (with back pain-worse with movement) Lungs: Clear to Auscultation, Normal Respiratory Effort Cardiovascular: Regular Rate, Regular Rhythm (slightly tachycardic) GI/Abdominal Exam: Normal Bowel Sounds, Distended, Tender, Other (mild tenderness and mild distension) Back Exam: Vertebral Tenderness, Other (Moderate tenderness to paraspinals along distal thoracic and lumbar spine) Extremities: Normal Inspection, Normal Range of Motion, Non-Tender, No Pedal Edema, Normal Capillary Refill Peripheral Pulses: 2+: Radial (L), Radial (R), Posterior Tibial (L), Posterior Tibial (R), Dorsalis Pedis (L), Dorsalis Pedis (R) Skin: Warm, Dry, Intact Wound/Incisions: Dressing Dry and Intact, Drainage (bloody drainage noted on wound vac dressing; removed to evaluate wound with hospitalist and then wound vac dressing reapplied; no erythema, swelling or purulent drainage to incision today.) Neurological: Other (slightly decreased strength and patellar reflex to left lower extremity; able to plantarflex and dorsiflex ankle and Achilles reflex normal) Psy/Mental Status: Alert, Normal Affect, Normal Mood Sepsis Event Note - Evaluation Sepsis Screening Result: No Definite Risk - Focused Exam Vital Signs: Vital Signs Temp Temp Temp Pulse Pulse Resp BP 07/31/19 10:15 37.3 C 101 H 16 07/31/19 09:44 122 H 107/61 07/31/19 08:00 37.6 C 118 H 16 07/31/19 06:57 39.1 C H 07/31/19 03:59 38.1 C 110 H 18 07/31/19 00:00 37.4 C 106 H 18 BP Pulse Ox 07/31/19 10:15 107/61 07/31/19 09:44 07/31/19 08:00 136/75 94 L 07/31/19 06:57 07/31/19 03:59 134/63 93 L 07/31/19 00:00 147/62 H 92 L Date Exam was Performed: 07/31/19 Time Exam was Performed: 15:12 - Problem List & Annotations (1) Back pain SNOMED Code(s): 675739190 Code(s): M54.9 - DORSALGIA, UNSPECIFIED Status: Acute Current Visit: Yes Qualifiers: Back pain location: low back pain - Problem List Review Problem List Initiated/Reviewed/Updated: Yes - My Orders Last 24 Hours: My Active Orders 07/30/19 12:55 LORazepam [Ativan] 1 mg PO Q6H PRN 07/31/19 10:30 Sodium Chloride 0.9% [Normal Saline] 1,000 ml IV ASDIRECTED 07/31/19 12:00 LACTIC ACID [CHEM] Routine 07/31/19 20:00 CBC WITH AUTO DIFF [HEME] Routine - Assessment Assessment:: 1. Did not attempt to have patient ambulate during exam today. Per Physical Therapy patient did tolerate ambulating yesterday with them. She has been fitted with her LSO brace and using it. Continue working with therapy. 2. Reviewed Hospitalist Consult note and reviewed patient symptoms, vitals and labs with him today during rounds. He ordered a chest x-ray and urinalysis, which I have reviewed also. 3. Repeat Lactic acid level at 1200. Vitals monitoring increased to every 2 hours until repeat lactic acid and if this is normal, vitals monitoring will be changed to every 4 hours and discontinue continuous oxygen saturation monitoring. Pulse and blood pressure parameters ordered: provider to be called if systolic blood pressure below 95 or pulse maintains 110 for 10-15 minutes. Normal saline IV infusion started at 125cc/hr. 1 unit of PRBC ordered by Dr. Nuñez this morning done. - Plan Plan:: No other changes to medications or treatment plan at this time. Wear LSO brace ( clarified correct brace with nursing and PT), take pain medication and ativan or valium as needed for anxiety.
--- NOTE | 2019-07-31 11:50 | CR ---
INDICATION: Postop, fever. Lumbar fusion on 07/29/19. CHEST, 1 VIEW: A single, AP upright view of the chest was obtained 07/31/19 - no comparisons. The heart is normal in size and shape. The aorta is minimally tortuous with calcification in the arch and descending portion. A definite active infiltrate or effusion was not identified. IMPRESSION: No acute process. MTDD
[2019-07-31] MEDS: Sodium Chloride 0.9% 1,000 ML IV SCH ×2 (12:50→22:36)
[2019-07-31] MEDS: LORazepam 1 MG Tab PO PRN ×2 (13:13)
[2019-07-31] MEDS: LINZESS 290 MCG CAPSULE PO SCH (15:37)
[2019-08-01] MEDS: Acetaminophen/oxyCODONE 325-5 MG Tab PO PRN ×6 (00:56→23:31)
[2019-08-01] MEDS: Acetaminophen 500 MG Tab PO SCH ×4 (03:23→21:17)
[2019-08-01] MEDS: Morphine 2 MG/ML Syringe IVPUSH PRN (03:23)
[2019-08-01] MEDS: LINZESS 290 MCG CAPSULE PO SCH (05:43)
[2019-08-01] MEDS: Sodium Chloride 0.9% 1,000 ML IV SCH (07:05)
[2019-08-01] MEDS: Vancomycin/Dextrose 5%-Water 200 ML IV SCH (08:41)
[2019-08-01] MEDS: LORazepam 1 MG Tab PO PRN ×2 (08:43→14:43)
[2019-08-01] MEDS: Gabapentin 600 MG Tab PO SCH ×3 (08:44→21:08)
[2019-08-01] MEDS: DULoxetine 60 MG Cap PO SCH (08:47)
[2019-08-01] MEDS: Atenolol 50 MG Tab PO SCH (08:50)
[2019-08-01] MEDS: amLODIPine 2.5 MG Tab PO SCH (08:50)
--- NOTE | 2019-08-01 09:17 | PCM.PN ---
- General Info Date of Service: 08/01/19 Admission Dx/Problem (Free Text): Patient states she has low back pain today and still stressing to her. She says she may have twisted it was she was sleeping last night she doesn't know. She denies fevers, night sweats, cough, dysuria. She still has a Prabhakar catheter in. - Patient Data Vitals - Most Recent: Last Vital Signs Temp 99.0 F 08/01/19 08:00 Pulse 99 08/01/19 08:50 Resp 18 08/01/19 08:00 BP 121/69 08/01/19 08:50 Pulse Ox 98 08/01/19 08:00 Weight - Most Recent: 127 lb 11.2 oz I&O - Last 24 Hours: Intake & Output 07/31/19 08/01/19 08/01/19 22:59 06:59 14:59 Intake Total 1368 550 Output Total 900 2150 Balance 468 -1600 Lab Results Last 24 Hours: Laboratory Results - last 24 hr 07/29/19 07/31/19 07/31/19 Range/Units 08:20 09:45 12:15 WBC (4.5-12.0) X10-3/uL RBC (3.23-5.20) x10(6)uL Hgb (11.5-15.5) g/dL Hct (30.0-51.3) % MCV (80-96) fL MCH (27.7-33.6) pg MCHC (32.2-35.4) g/dL RDW (11.5-15.5) % Plt Count (125-369) X10(3)uL MPV (7.4-10.4) fL Neut % (Auto) (46-82) % Lymph % (Auto) (13-37) % [place] % (Auto) (4-12) % Eos % (Auto) (1.0-5.0) % Baso % (Auto) (0-2) % Neut # (Auto) (1.6-8.3) # Lymph # (Auto) (0.6-5.0) # [place] # (Auto) (0.0-1.3) # Eos # (Auto) (0.0-0.8) # Baso # (Auto) (0.0-0.2) # Add Manual Diff Neutrophils % (Manual) (46-82) % Band Neutrophils % (0-6) % Lymphocytes % (Manual) (13-37) % Monocytes % (Manual) (4-12) % Eosinophils % (Manual) (0-5) % Sodium (135-145) mmol/L Potassium (3.5-5.3) mmol/L Chloride (100-110) mmol/L Carbon Dioxide (21-32) mmol/L BUN (7-18) mg/dL Creatinine (0.55-1.02) mg/dL Est Cr Clr Drug Dosing mL/min Estimated GFR (MDRD) (>60) BUN/Creatinine Ratio (9-20) Glucose (80-116) mg/dL Lactic Acid 1.2 (0.4-2.0) mmol/L Calcium (8.6-10.2) mg/dL Urine Color Yellow (YELLOW) Urine Appearance Clear (CLEAR) Urine pH 6.0 (5.0-6.5) Ur Specific [place] 1.010 (1.010-1.025) Urine Protein Negative (NEGATIVE) mg/dL Urine Glucose (UA) Normal (NORMAL) mg/dL Urine Ketones Negative (NEGATIVE) mg/dL Urine Occult Blood Large H (NEGATIVE) Urine Nitrite Negative (NEGATIVE) Urine Bilirubin Negative (NEGATIVE) Urine Urobilinogen Normal (NEGATIVE) mg/dL Ur Leukocyte Esterase Negative (NEGATIVE) Urine RBC >100 H (0-5) Urine WBC 0-5 (0-5) Ur Squamous Epith Cells Few H (NS,R,O) Blood Type A POSITIVE Gel Antibody Screen Negative Crossmatch See Detail 07/31/19 08/01/19 08/01/19 Range/Units 20:00 06:20 06:20 WBC 12.3 H 12.2 H (4.5-12.0) X10-3/uL RBC 2.95 L 3.16 L (3.23-5.20) x10(6)uL Hgb 8.6 L 9.4 L (11.5-15.5) g/dL Hct 26.0 L 27.9 L (30.0-51.3) % MCV 88.0 88.4 (80-96) fL MCH 29.1 29.6 (27.7-33.6) pg MCHC 33.1 33.5 (32.2-35.4) g/dL RDW 15.4 15.4 (11.5-15.5) % Plt Count 309 349 (125-369) X10(3)uL MPV 6.9 L 7.2 L (7.4-10.4) fL Neut % (Auto) 77.0 (46-82) % Lymph % (Auto) 13.3 (13-37) % [place] % (Auto) 6.7 (4-12) % Eos % (Auto) 2 (1.0-5.0) % Baso % (Auto) 2 (0-2) % Neut # (Auto) 9.5 H (1.6-8.3) # Lymph # (Auto) 1.6 (0.6-5.0) # [place] # (Auto) 0.8 (0.0-1.3) # Eos # (Auto) 0.2 (0.0-0.8) # Baso # (Auto) 0.2 (0.0-0.2) # Add Manual Diff Yes Neutrophils % (Manual) 72 (46-82) % Band Neutrophils % 3 (0-6) % Lymphocytes % (Manual) 18 (13-37) % Monocytes % (Manual) 5 (4-12) % Eosinophils % (Manual) 2 (0-5) % Sodium 140 (135-145) mmol/L Potassium 3.9 (3.5-5.3) mmol/L Chloride 103 (100-110) mmol/L Carbon Dioxide 28 (21-32) mmol/L BUN 7 (7-18) mg/dL Creatinine 0.6 (0.55-1.02) mg/dL Est Cr Clr Drug Dosing 76.99 mL/min Estimated GFR (MDRD) > 60 (>60) BUN/Creatinine Ratio 11.7 (9-20) Glucose 105 (80-116) mg/dL Lactic Acid (0.4-2.0) mmol/L Calcium 8.7 (8.6-10.2) mg/dL Urine Color (YELLOW) Urine Appearance (CLEAR) Urine pH (5.0-6.5) Ur Specific [place] (1.010-1.025) Urine Protein (NEGATIVE) mg/dL Urine Glucose (UA) (NORMAL) mg/dL Urine Ketones (NEGATIVE) mg/dL Urine Occult Blood (NEGATIVE) Urine Nitrite (NEGATIVE) Urine Bilirubin (NEGATIVE) Urine Urobilinogen (NEGATIVE) mg/dL Ur Leukocyte Esterase (NEGATIVE) Urine RBC (0-5) Urine WBC (0-5) Ur Squamous Epith Cells (NS,R,O) Blood Type Gel Antibody Screen Crossmatch [facility] Results Last 24 Hours: Microbiology 07/31/19 07:25 Aerobic Blood Culture - Preliminary Blood NO GROWTH AFTER 1 DAY Anaerobic Blood Culture - Preliminary NO GROWTH AFTER 1 DAY 07/31/19 07:20 Aerobic Blood Culture - Preliminary Blood NO GROWTH AFTER 1 DAY Anaerobic Blood Culture - Preliminary NO GROWTH AFTER 1 DAY Med Orders - Current: Current Medications Acetaminophen (Tylenol Extra Strength) 500 mg PO Q6H [facility] Last Admin: 08/01/19 09:01 Dose: 500 mg Albuterol (Ventolin Hfa) 0 gm INH Q4H PRN PRN Reason: Wheezing Amlodipine Besylate (Norvasc) 2.5 mg PO DAILY [facility] Last Admin: 08/01/19 08:50 Dose: 2.5 mg Atenolol (Tenormin) 50 mg PO DAILY [facility] Last Admin: 08/01/19 08:50 Dose: 50 mg Duloxetine HCl (Cymbalta) 60 mg PO DAILY [facility] Last Admin: 08/01/19 08:47 Dose: 60 mg Gabapentin (Neurontin) 600 mg PO TID [facility] Last Admin: 08/01/19 08:44 Dose: 600 mg Vancomycin HCl (Vancomycin 1 Gm/200 Ml In D5w) 200 mls @ 200 mls/hr IV Q12H [facility] Last Admin: 08/01/19 08:41 Dose: 200 mls/hr Sodium Chloride (Normal Saline) 250 mls @ 100 mls/hr IV ASDIRECTED [facility] Sodium Chloride (Normal Saline) 1,000 mls @ 125 mls/hr IV ASDIRECTED [facility] Last Admin: 08/01/19 07:05 Dose: 125 mls/hr Lorazepam (Ativan) 1 mg PO Q6H PRN PRN Reason: Anxiety Last Admin: 08/01/19 08:43 Dose: 1 mg Magnesium Hydroxide (Milk Of Magnesia) 30 ml PO BID PRN PRN Reason: Constipation Morphine Sulfate (Morphine) 2 mg IVPUSH Q2H PRN PRN Reason: PAIN Last Admin: 08/01/19 03:23 Dose: 2 mg Naloxone HCl (Narcan) 0.2 mg IVPUSH ONETIME PRN PRN Reason: Oversedation Linzess 290 Mcg (Capsule) 0 each PO DAILY@0600 [facility] Last Admin: 08/01/19 05:43 Dose: 1 each Ondansetron HCl (Zofran) 8 mg IVPUSH Q4H PRN PRN Reason: Nausea/Vomiting Oxycodone/Acetaminophen (Percocet 325-5 Mg) 1 tab PO Q4H PRN PRN Reason: moderate pain 4-6 Last Admin: 08/01/19 05:48 Dose: 1 tab Senna (Senna) 8.6 mg PO BID PRN PRN Reason: Constipation Sodium Chloride (Saline Flush) 10 ml FLUSH ASDIRECTED PRN PRN Reason: Keep Vein Open Last Admin: 07/31/19 08:20 Dose: 10 ml Vancomycin HCl (Vancomycin) 1 gm IV .PHARMACY TO DOSE [facility] Last Admin: 08/01/19 08:46 Dose: 1 mg Zolpidem Tartrate (Ambien) 5 mg PO BEDTIME PRN PRN Reason: Sleep Discontinued Medications Acetaminophen (Tylenol Extra Strength) 1,000 mg PO ONETIME ONE Stop: 07/29/19 07:01 Last Admin: 07/29/19 08:58 Dose: 1,000 mg Cefazolin Sodium (Ancef) 1 gm IVPUSH Q8H [facility] Stop: 07/30/19 02:01 Last Admin: 07/30/19 01:59 Dose: 1 gm Ropivacaine 49.25 ml/Ketorolac Tromethamine 30 mg/Epinephrine HCl 0.5 mg/ Clonidine HCl 80 mcg/ Sodium Chloride 48.45 ml 0 ml INJECT ASDIRECTED [facility] Last Admin: 07/29/19 12:20 Dose: 100 syringe Tranexamic Acid 3,000 mg/ (Sodium Chloride 100 ml) 0 mg IRR ONETIME ONE Stop: 07/29/19 09:01 Last Admin: 07/29/19 12:23 Dose: 100 irr Gabapentin (Neurontin) 300 mg PO ONETIME ONE Stop: 07/29/19 07:01 Last Admin: 07/29/19 08:58 Dose: 300 mg Cefazolin Sodium/Dextrose 2 gm (/ Premix) 50 mls @ 100 mls/hr IV ONETIME ONE Stop: 07/29/19 09:29 Lactated Ringer's (Ringers, Lactated) 1,000 mls @ 125 mls/hr IV ASDIRECTED [facility] Last Admin: 07/30/19 11:39 Dose: 125 mls/hr Cefazolin Sodium/Dextrose 2 gm (/ Premix) 50 mls @ 100 mls/hr IV ONETIME ONE Stop: 07/29/19 09:29 Last Admin: 07/29/19 09:58 Dose: 100 mls/hr Influenza Virus Vaccine (Fluzone Quad 8049-2581 Syringe) 60 mcg IM .ONCE ONE Stop: 07/29/19 10:01 Ketorolac Tromethamine (Toradol) 30 mg IVPUSH Q8H [facility] Stop: 07/29/19 23:16 Last Admin: 07/29/19 23:18 Dose: 30 mg Scopolamine (Transderm-Scop) 1.5 mg TRDERM ONETIME ONE Stop: 07/29/19 07:01 Last Admin: 07/29/19 08:58 Dose: 1.5 mg Thrombin (Thrombin-Jmi) 20,000 unit .XX .STK-MED ONE Stop: 07/29/19 13:47 Last Admin: 07/29/19 13:46 Dose: 20,000 unit Thrombin (Recothrom) 15,000 unit .XX .STK-MED ONE Stop: 07/29/19 12:01 Last Admin: 07/29/19 12:00 Dose: 15,000 unit - Exam General: Alert, Oriented, Cooperative Lungs: Clear to Auscultation, Normal Respiratory Effort Cardiovascular: Regular Rate, Regular Rhythm, No Murmurs Sepsis Event Note - Evaluation Sepsis Screening Result: No Definite Risk - Focused Exam Vital Signs: Vital Signs Temp Temp Pulse Pulse Resp BP BP 08/01/19 08:50 99 121/69 08/01/19 08:00 99.0 F 99 18 121/69 08/01/19 04:00 99.9 F 99 18 07/31/19 23:33 99.7 F 93 18 BP Pulse Ox 08/01/19 08:50 08/01/19 08:00 98 08/01/19 04:00 140/84 93 L 07/31/19 23:33 121/53 L 93 L Date Exam was Performed: 08/01/19 Time Exam was Performed: 09:14 - Problem List & Annotations (1) Fusion of lumbar spine SNOMED Code(s): 380013178 Code(s): M43.26 - FUSION OF SPINE, LUMBAR REGION Status: Acute Current Visit: Yes (2) Postoperative fever SNOMED Code(s): 472535343 Code(s): R50.82 - POSTPROCEDURAL FEVER Status: Acute Current Visit: Yes (3) Constipation SNOMED Code(s): 41330024 Code(s): K59.00 - CONSTIPATION, UNSPECIFIED Status: Acute Current Visit: Yes (4) Abdominal distention SNOMED Code(s): 53506424 Code(s): R14.0 - ABDOMINAL DISTENSION (GASEOUS) Status: Acute Current Visit: Yes (5) Back pain SNOMED Code(s): 659949145 Code(s): M54.9 - DORSALGIA, UNSPECIFIED Status: Acute Current Visit: Yes Qualifiers: Back pain location: low back pain (6) Postoperative anemia SNOMED Code(s): 862372498, 332602803 Code(s): D64.9 - ANEMIA, UNSPECIFIED Status: Acute Current Visit: Yes - Problem List Review Problem List Initiated/Reviewed/Updated: Yes - Plan Plan:: 1. DC IV fluids and saline IV. I will do this. 2. Recommend DC Prabhakar. I'll leave that up to the surgical team. 3. Patient's been afebrile since yesterday afternoon. No site of infection at this time. 4. Continue vancomycin 5. Waiting for blood cultures that are pending.
--- NOTE | 2019-08-01 09:51 | PCM.PN ---
- General Info Date of Service: 08/01/19 Functional Status: Reports: Pain Controlled, Tolerating Diet, Ambulating - Review of Systems General: Reports: No Symptoms HEENT: Reports: No Symptoms Pulmonary: Reports: No Symptoms Cardiovascular: Reports: No Symptoms Gastrointestinal: Reports: No Symptoms Genitourinary: Reports: No Symptoms Musculoskeletal: Reports: Back Pain Skin: Reports: No Symptoms Neurological: Reports: No Symptoms Psychiatric: Reports: No Symptoms - Patient Data Vitals - Most Recent: Last Vital Signs Temp 99.0 F 08/01/19 08:00 Pulse 99 08/01/19 08:50 Resp 18 08/01/19 08:00 BP 121/69 08/01/19 08:50 Pulse Ox 98 08/01/19 08:00 Weight - Most Recent: 127 lb 11.2 oz I&O - Last 24 Hours: Intake & Output 07/31/19 08/01/19 08/01/19 22:59 06:59 14:59 Intake Total 1368 550 Output Total 900 2150 Balance 468 -1600 Lab Results Last 24 Hours: Laboratory Results - last 24 hr 07/29/19 07/31/19 07/31/19 Range/Units 08:20 09:45 12:15 WBC (4.5-12.0) X10-3/uL RBC (3.23-5.20) x10(6)uL Hgb (11.5-15.5) g/dL Hct (30.0-51.3) % MCV (80-96) fL MCH (27.7-33.6) pg MCHC (32.2-35.4) g/dL RDW (11.5-15.5) % Plt Count (125-369) X10(3)uL MPV (7.4-10.4) fL Neut % (Auto) (46-82) % Lymph % (Auto) (13-37) % [place] % (Auto) (4-12) % Eos % (Auto) (1.0-5.0) % Baso % (Auto) (0-2) % Neut # (Auto) (1.6-8.3) # Lymph # (Auto) (0.6-5.0) # [place] # (Auto) (0.0-1.3) # Eos # (Auto) (0.0-0.8) # Baso # (Auto) (0.0-0.2) # Add Manual Diff Neutrophils % (Manual) (46-82) % Band Neutrophils % (0-6) % Lymphocytes % (Manual) (13-37) % Monocytes % (Manual) (4-12) % Eosinophils % (Manual) (0-5) % Sodium (135-145) mmol/L Potassium (3.5-5.3) mmol/L Chloride (100-110) mmol/L Carbon Dioxide (21-32) mmol/L BUN (7-18) mg/dL Creatinine (0.55-1.02) mg/dL Est Cr Clr Drug Dosing mL/min Estimated GFR (MDRD) (>60) BUN/Creatinine Ratio (9-20) Glucose (80-116) mg/dL Lactic Acid 1.2 (0.4-2.0) mmol/L Calcium (8.6-10.2) mg/dL Urine Color Yellow (YELLOW) Urine Appearance Clear (CLEAR) Urine pH 6.0 (5.0-6.5) Ur Specific [place] 1.010 (1.010-1.025) Urine Protein Negative (NEGATIVE) mg/dL Urine Glucose (UA) Normal (NORMAL) mg/dL Urine Ketones Negative (NEGATIVE) mg/dL Urine Occult Blood Large H (NEGATIVE) Urine Nitrite Negative (NEGATIVE) Urine Bilirubin Negative (NEGATIVE) Urine Urobilinogen Normal (NEGATIVE) mg/dL Ur Leukocyte Esterase Negative (NEGATIVE) Urine RBC >100 H (0-5) Urine WBC 0-5 (0-5) Ur Squamous Epith Cells Few H (NS,R,O) Blood Type A POSITIVE Gel Antibody Screen Negative Crossmatch See Detail 07/31/19 08/01/19 08/01/19 Range/Units 20:00 06:20 06:20 WBC 12.3 H 12.2 H (4.5-12.0) X10-3/uL RBC 2.95 L 3.16 L (3.23-5.20) x10(6)uL Hgb 8.6 L 9.4 L (11.5-15.5) g/dL Hct 26.0 L 27.9 L (30.0-51.3) % MCV 88.0 88.4 (80-96) fL MCH 29.1 29.6 (27.7-33.6) pg MCHC 33.1 33.5 (32.2-35.4) g/dL RDW 15.4 15.4 (11.5-15.5) % Plt Count 309 349 (125-369) X10(3)uL MPV 6.9 L 7.2 L (7.4-10.4) fL Neut % (Auto) 77.0 (46-82) % Lymph % (Auto) 13.3 (13-37) % [place] % (Auto) 6.7 (4-12) % Eos % (Auto) 2 (1.0-5.0) % Baso % (Auto) 2 (0-2) % Neut # (Auto) 9.5 H (1.6-8.3) # Lymph # (Auto) 1.6 (0.6-5.0) # [place] # (Auto) 0.8 (0.0-1.3) # Eos # (Auto) 0.2 (0.0-0.8) # Baso # (Auto) 0.2 (0.0-0.2) # Add Manual Diff Yes Neutrophils % (Manual) 72 (46-82) % Band Neutrophils % 3 (0-6) % Lymphocytes % (Manual) 18 (13-37) % Monocytes % (Manual) 5 (4-12) % Eosinophils % (Manual) 2 (0-5) % Sodium 140 (135-145) mmol/L Potassium 3.9 (3.5-5.3) mmol/L Chloride 103 (100-110) mmol/L Carbon Dioxide 28 (21-32) mmol/L BUN 7 (7-18) mg/dL Creatinine 0.6 (0.55-1.02) mg/dL Est Cr Clr Drug Dosing 76.99 mL/min Estimated GFR (MDRD) > 60 (>60) BUN/Creatinine Ratio 11.7 (9-20) Glucose 105 (80-116) mg/dL Lactic Acid (0.4-2.0) mmol/L Calcium 8.7 (8.6-10.2) mg/dL Urine Color (YELLOW) Urine Appearance (CLEAR) Urine pH (5.0-6.5) Ur Specific [place] (1.010-1.025) Urine Protein (NEGATIVE) mg/dL Urine Glucose (UA) (NORMAL) mg/dL Urine Ketones (NEGATIVE) mg/dL Urine Occult Blood (NEGATIVE) Urine Nitrite (NEGATIVE) Urine Bilirubin (NEGATIVE) Urine Urobilinogen (NEGATIVE) mg/dL Ur Leukocyte Esterase (NEGATIVE) Urine RBC (0-5) Urine WBC (0-5) Ur Squamous Epith Cells (NS,R,O) Blood Type Gel Antibody Screen Crossmatch [place] Results Last 24 Hours: Microbiology 07/31/19 07:25 Aerobic Blood Culture - Preliminary Blood NO GROWTH AFTER 1 DAY Anaerobic Blood Culture - Preliminary NO GROWTH AFTER 1 DAY 07/31/19 07:20 Aerobic Blood Culture - Preliminary Blood NO GROWTH AFTER 1 DAY Anaerobic Blood Culture - Preliminary NO GROWTH AFTER 1 DAY Med Orders - Current: Current Medications Acetaminophen (Tylenol Extra Strength) 500 mg PO Q6H [facility] Last Admin: 08/01/19 09:01 Dose: 500 mg Albuterol (Ventolin Hfa) 0 gm INH Q4H PRN PRN Reason: Wheezing Amlodipine Besylate (Norvasc) 2.5 mg PO DAILY [facility] Last Admin: 08/01/19 08:50 Dose: 2.5 mg Atenolol (Tenormin) 50 mg PO DAILY [facility] Last Admin: 08/01/19 08:50 Dose: 50 mg Duloxetine HCl (Cymbalta) 60 mg PO DAILY [facility] Last Admin: 08/01/19 08:47 Dose: 60 mg Gabapentin (Neurontin) 600 mg PO TID [facility] Last Admin: 08/01/19 08:44 Dose: 600 mg Vancomycin HCl (Vancomycin 1 Gm/200 Ml In D5w) 200 mls @ 200 mls/hr IV Q12H [facility] Last Admin: 08/01/19 08:41 Dose: 200 mls/hr Lorazepam (Ativan) 1 mg PO Q6H PRN PRN Reason: Anxiety Last Admin: 08/01/19 08:43 Dose: 1 mg Magnesium Hydroxide (Milk Of Magnesia) 30 ml PO BID PRN PRN Reason: Constipation Morphine Sulfate (Morphine) 2 mg IVPUSH Q2H PRN PRN Reason: PAIN Last Admin: 08/01/19 03:23 Dose: 2 mg Naloxone HCl (Narcan) 0.2 mg IVPUSH ONETIME PRN PRN Reason: Oversedation Linzess 290 Mcg (Capsule) 0 each PO DAILY@0600 [facility] Last Admin: 08/01/19 05:43 Dose: 1 each Ondansetron HCl (Zofran) 8 mg IVPUSH Q4H PRN PRN Reason: Nausea/Vomiting Oxycodone/Acetaminophen (Percocet 325-5 Mg) 1 tab PO Q4H PRN PRN Reason: moderate pain 4-6 Last Admin: 08/01/19 05:48 Dose: 1 tab Senna (Senna) 8.6 mg PO BID PRN PRN Reason: Constipation Vancomycin HCl (Vancomycin) 1 gm IV .PHARMACY TO DOSE [facility] Last Admin: 08/01/19 08:46 Dose: 1 mg Zolpidem Tartrate (Ambien) 5 mg PO BEDTIME PRN PRN Reason: Sleep Discontinued Medications Acetaminophen (Tylenol Extra Strength) 1,000 mg PO ONETIME ONE Stop: 07/29/19 07:01 Last Admin: 07/29/19 08:58 Dose: 1,000 mg Cefazolin Sodium (Ancef) 1 gm IVPUSH Q8H [facility] Stop: 07/30/19 02:01 Last Admin: 07/30/19 01:59 Dose: 1 gm Ropivacaine 49.25 ml/Ketorolac Tromethamine 30 mg/Epinephrine HCl 0.5 mg/ Clonidine HCl 80 mcg/ Sodium Chloride 48.45 ml 0 ml INJECT ASDIRECTED [facility] Last Admin: 07/29/19 12:20 Dose: 100 syringe Tranexamic Acid 3,000 mg/ (Sodium Chloride 100 ml) 0 mg IRR ONETIME ONE Stop: 07/29/19 09:01 Last Admin: 07/29/19 12:23 Dose: 100 irr Gabapentin (Neurontin) 300 mg PO ONETIME ONE Stop: 07/29/19 07:01 Last Admin: 07/29/19 08:58 Dose: 300 mg Cefazolin Sodium/Dextrose 2 gm (/ Premix) 50 mls @ 100 mls/hr IV ONETIME ONE Stop: 07/29/19 09:29 Lactated Ringer's (Ringers, Lactated) 1,000 mls @ 125 mls/hr IV ASDIRECTED [facility] Last Admin: 07/30/19 11:39 Dose: 125 mls/hr Cefazolin Sodium/Dextrose 2 gm (/ Premix) 50 mls @ 100 mls/hr IV ONETIME ONE Stop: 07/29/19 09:29 Last Admin: 07/29/19 09:58 Dose: 100 mls/hr Sodium Chloride (Normal Saline) 250 mls @ 100 mls/hr IV ASDIRECTED [facility] Sodium Chloride (Normal Saline) 1,000 mls @ 125 mls/hr IV ASDIRECTED [facility] Last Admin: 08/01/19 07:05 Dose: 125 mls/hr Influenza Virus Vaccine (Fluzone Quad Syringe) 60 mcg IM .ONCE ONE Stop: 07/29/19 10:01 Ketorolac Tromethamine (Toradol) 30 mg IVPUSH Q8H [facility] Stop: 07/29/19 23:16 Last Admin: 07/29/19 23:18 Dose: 30 mg Scopolamine (Transderm-Scop) 1.5 mg TRDERM ONETIME ONE Stop: 07/29/19 07:01 Last Admin: 07/29/19 08:58 Dose: 1.5 mg Sodium Chloride (Saline Flush) 10 ml FLUSH ASDIRECTED PRN PRN Reason: Keep Vein Open Last Admin: 07/31/19 08:20 Dose: 10 ml Thrombin (Thrombin-Jmi) 20,000 unit .XX .STK-MED ONE Stop: 07/29/19 13:47 Last Admin: 07/29/19 13:46 Dose: 20,000 unit Thrombin (Recothrom) 15,000 unit .XX .STK-MED ONE Stop: 07/29/19 12:01 Last Admin: 07/29/19 12:00 Dose: 15,000 unit - Exam Quality Assessment: Urine Catheter General: Alert, Oriented, Cooperative, Mild Distress HEENT: Pupils Equal, Pupils Reactive, EOMI, Mucous Membr. Moist/[place] Neck: Supple, Trachea Midline Lungs: Normal Respiratory Effort GI/Abdominal Exam: No Distention Extremities: Normal Inspection, Normal Range of Motion, No Pedal Edema Peripheral Pulses: 2+: Dorsalis Pedis (L), Dorsalis Pedis (R) Skin: Warm, Dry, Intact Wound/Incisions: Healing Well, Dressing Dry and Intact, No Drainage Neurological: No New Focal Deficit Psy/Mental Status: Alert, Normal Affect, Normal Mood Sepsis Event Note - Evaluation Sepsis Screening Result: No Definite Risk - Focused Exam Vital Signs: Vital Signs Temp Temp Pulse Pulse Resp BP BP 08/01/19 08:50 99 121/69 08/01/19 08:00 99.0 F 99 18 121/69 08/01/19 04:00 99.9 F 99 18 07/31/19 23:33 99.7 F 93 18 BP Pulse Ox 08/01/19 08:50 08/01/19 08:00 98 08/01/19 04:00 140/84 93 L 07/31/19 23:33 121/53 L 93 L Date Exam was Performed: 08/01/19 Time Exam was Performed: 09:47 - Problem List & Annotations (1) Back pain SNOMED Code(s): 779102939 Code(s): M54.9 - DORSALGIA, UNSPECIFIED Status: Acute Current Visit: Yes Qualifiers: Back pain location: low back pain Chronicity: acute Back pain laterality : midline Sciatica presence: without sciatica Qualified Code(s): M54.5 - Low back pain (2) Fusion of lumbar spine SNOMED Code(s): 281391150 Code(s): M43.26 - FUSION OF SPINE, LUMBAR REGION Status: Acute Current Visit: Yes - Problem List Review Problem List Initiated/Reviewed/Updated: Yes - My Orders Last 24 Hours: My Active Orders 08/01/19 09:22 DC Prabhakar Catheter [Urinary Catheter Removal] [RC] Per Unit Routine 08/01/19 19:00 VANCOMYCIN TROUGH [CHEM] Routine - Plan Plan:: aassessment: 53-year-old femalepostoperative day #2 revision L4-S1 fusion Plan: #1 DC Prabhakar today #2 continue physical therapy and occupational therapy #3 continue IV antibiotics #4 we will keep the patient until have 3 days of negative blood cultures. We will plan on discharging the patient on Monday. We will keep her on IV vancomycinuntil we have 3 days of negative blood cultures.
[2019-08-01] MEDS: Magnesium Hydroxide 400 MG/5 ML Susp 30 ML Cup PO PRN (16:07)
[2019-08-01] MEDS: Sodium Chloride 0.9% 10 ML Syringe FLUSH PRN (22:19)
[2019-08-02] MEDS: Acetaminophen 500 MG Tab PO SCH ×4 (04:24→21:00)
[2019-08-02] MEDS: Acetaminophen/oxyCODONE 325-5 MG Tab PO PRN ×5 (04:24→23:50)
[2019-08-02] MEDS: Sodium Chloride 0.9% 10 ML Syringe FLUSH PRN (08:53)
[2019-08-02] MEDS: DULoxetine 60 MG Cap PO SCH (08:53)
[2019-08-02] MEDS: Atenolol 50 MG Tab PO SCH (08:54)
[2019-08-02] MEDS: amLODIPine 2.5 MG Tab PO SCH (08:55)
[2019-08-02] MEDS: LINZESS 290 MCG CAPSULE PO SCH (08:57)
[2019-08-02] MEDS: Gabapentin 600 MG Tab PO SCH ×3 (09:01→20:59)
[2019-08-02] MEDS ORDERED: ALPRAZolam 0.5 MG Tab PO PRN (11:14)
--- NOTE | 2019-08-02 12:56 | PCM.PN ---
- General Info Date of Service: 08/02/19 Admission Dx/Problem (Free Text): Patient states she has low back pain today and still stressing to her. She says she may have twisted it was she was sleeping last night she doesn't know. She denies fevers, night sweats, cough, dysuria. She still has a Prabhakar catheter in. Functional Status: Reports: Pain Controlled, Tolerating Diet, Ambulating - Review of Systems General: Reports: No Symptoms HEENT: Reports: No Symptoms Pulmonary: Reports: No Symptoms Cardiovascular: Reports: No Symptoms Gastrointestinal: Reports: No Symptoms Genitourinary: Reports: Retention Musculoskeletal: Reports: Back Pain Skin: Reports: No Symptoms Neurological: Reports: No Symptoms Psychiatric: Reports: No Symptoms - Patient Data Vitals - Most Recent: Last Vital Signs Temp 98.1 F 08/02/19 04:00 Pulse 82 08/02/19 08:54 Resp 17 08/02/19 04:00 BP 120/58 L 08/02/19 08:55 Pulse Ox 98 08/02/19 04:00 Weight - Most Recent: 127 lb 11.2 oz I&O - Last 24 Hours: Intake & Output 08/01/19 08/02/19 08/02/19 22:59 06:59 14:59 Intake Total 200 843 Balance 200 843 Lab Results Last 24 Hours: Laboratory Results - last 24 hr 08/01/19 08/02/19 Range/Units 19:00 10:20 Urine Color Yellow (YELLOW) Urine Appearance Clear (CLEAR) Urine pH 5.0 (5.0-6.5) Ur Specific [place] 1.010 (1.010-1.025) Urine Protein Negative (NEGATIVE) mg/dL Urine Glucose (UA) Normal (NORMAL) mg/dL Urine Ketones 15 H (NEGATIVE) mg/dL Urine Occult Blood Moderate H (NEGATIVE) Urine Nitrite Negative (NEGATIVE) Urine Bilirubin Negative (NEGATIVE) Urine Urobilinogen Normal (NEGATIVE) mg/dL Ur Leukocyte Esterase Negative (NEGATIVE) Urine RBC 10-20 H (0-5) Urine WBC 0-5 (0-5) Ur Squamous Epith Cells Occasional (NS,R,O) Urine Bacteria Few H (NS) Vancomycin Trough 10.6 H (<0.8) ug/mL [place] Results Last 24 Hours: Microbiology 07/31/19 07:20 Aerobic Blood Culture - Preliminary Blood NO GROWTH AFTER 2 DAYS Anaerobic Blood Culture - Preliminary NO GROWTH AFTER 2 DAYS 07/31/19 07:25 Aerobic Blood Culture - Preliminary Blood NO GROWTH AFTER 2 DAYS Anaerobic Blood Culture - Preliminary NO GROWTH AFTER 2 DAYS Med Orders - Current: Current Medications Acetaminophen (Tylenol Extra Strength) 500 mg PO Q6H [facility] Last Admin: 08/02/19 11:28 Dose: 500 mg Albuterol (Ventolin Hfa) 0 gm INH Q4H PRN PRN Reason: Wheezing Alprazolam (Xanax) 0.5 mg PO Q8H PRN PRN Reason: Anxiety Last Admin: 08/02/19 11:47 Dose: 0.5 mg Amlodipine Besylate (Norvasc) 2.5 mg PO DAILY [facility] Last Admin: 08/02/19 08:55 Dose: 2.5 mg Atenolol (Tenormin) 50 mg PO DAILY [facility] Last Admin: 08/02/19 08:54 Dose: 50 mg Duloxetine HCl (Cymbalta) 60 mg PO DAILY [facility] Last Admin: 08/02/19 08:53 Dose: 60 mg Gabapentin (Neurontin) 600 mg PO TID [facility] Last Admin: 08/02/19 09:01 Dose: 600 mg Vancomycin HCl 1.25 gm/ Sodium (Chloride) 250 mls @ 166.667 mls/hr IV Q12H [facility] Magnesium Hydroxide (Milk Of Magnesia) 30 ml PO BID PRN PRN Reason: Constipation Last Admin: 08/01/19 16:07 Dose: 30 ml Naloxone HCl (Narcan) 0.2 mg IVPUSH ONETIME PRN PRN Reason: Oversedation Linzess 290 Mcg (Capsule) 0 each PO DAILY [facility] Last Admin: 08/02/19 08:57 Dose: 1 each Ondansetron HCl (Zofran) 8 mg IVPUSH Q4H PRN PRN Reason: Nausea/Vomiting Oxycodone/Acetaminophen (Percocet 325-5 Mg) 1 tab PO Q4H PRN PRN Reason: moderate pain 4-6 Last Admin: 08/02/19 08:54 Dose: 1 tab Senna (Senna) 8.6 mg PO BID PRN PRN Reason: Constipation Last Admin: 08/01/19 18:06 Dose: 8.6 mg Vancomycin HCl (Vancomycin) 1 gm IV .PHARMACY TO DOSE [facility] Varenicline (Chantix) 1 mg PO BIDPC [facility] Last Admin: 08/02/19 08:53 Dose: 1 mg Zolpidem Tartrate (Ambien) 5 mg PO BEDTIME PRN PRN Reason: Sleep Last Admin: 08/02/19 02:00 Dose: 5 mg Discontinued Medications Acetaminophen (Tylenol Extra Strength) 1,000 mg PO ONETIME ONE Stop: 07/29/19 07:01 Last Admin: 07/29/19 08:58 Dose: 1,000 mg Cefazolin Sodium (Ancef) 1 gm IVPUSH Q8H [facility] Stop: 07/30/19 02:01 Last Admin: 07/30/19 01:59 Dose: 1 gm Ropivacaine 49.25 ml/Ketorolac Tromethamine 30 mg/Epinephrine HCl 0.5 mg/ Clonidine HCl 80 mcg/ Sodium Chloride 48.45 ml 0 ml INJECT ASDIRECTED [facility] Last Admin: 07/29/19 12:20 Dose: 100 syringe Tranexamic Acid 3,000 mg/ (Sodium Chloride 100 ml) 0 mg IRR ONETIME ONE Stop: 07/29/19 09:01 Last Admin: 07/29/19 12:23 Dose: 100 irr Gabapentin (Neurontin) 300 mg PO ONETIME ONE Stop: 07/29/19 07:01 Last Admin: 07/29/19 08:58 Dose: 300 mg Vancomycin HCl 1.25 gm/ Sodium (Chloride) 250 mls @ 166.667 mls/hr IV Q12H [facility] Last Admin: 08/02/19 08:11 Dose: 166.667 mls/hr Cefazolin Sodium/Dextrose 2 gm (/ Premix) 50 mls @ 100 mls/hr IV ONETIME ONE Stop: 07/29/19 09:29 Lactated Ringer's (Ringers, Lactated) 1,000 mls @ 125 mls/hr IV ASDIRECTED [facility] Last Admin: 07/30/19 11:39 Dose: 125 mls/hr Cefazolin Sodium/Dextrose 2 gm (/ Premix) 50 mls @ 100 mls/hr IV ONETIME ONE Stop: 07/29/19 09:29 Last Admin: 07/29/19 09:58 Dose: 100 mls/hr Vancomycin HCl (Vancomycin 1 Gm/200 Ml In D5w) 200 mls @ 200 mls/hr IV Q12H [facility] Last Admin: 08/01/19 08:41 Dose: 200 mls/hr Sodium Chloride (Normal Saline) 250 mls @ 100 mls/hr IV ASDIRECTED [facility] Sodium Chloride (Normal Saline) 1,000 mls @ 125 mls/hr IV ASDIRECTED [facility] Last Admin: 08/01/19 07:05 Dose: 125 mls/hr Influenza Virus Vaccine (Fluzone Quad Syringe) 60 mcg IM .ONCE ONE Stop: 07/29/19 10:01 Ketorolac Tromethamine (Toradol) 30 mg IVPUSH Q8H [facility] Stop: 07/29/19 23:16 Last Admin: 07/29/19 23:18 Dose: 30 mg Lorazepam (Ativan) 1 mg PO Q6H PRN PRN Reason: Anxiety Last Admin: 08/01/19 14:43 Dose: 1 mg Morphine Sulfate (Morphine) 2 mg IVPUSH Q2H PRN PRN Reason: PAIN Last Admin: 08/01/19 03:23 Dose: 2 mg Linzess 290 Mcg (Capsule) 0 each PO DAILY@0600 [facility] Last Admin: 08/01/19 05:43 Dose: 1 each Scopolamine (Transderm-Scop) 1.5 mg TRDERM ONETIME ONE Stop: 07/29/19 07:01 Last Admin: 07/29/19 08:58 Dose: 1.5 mg Sodium Chloride (Saline Flush) 10 ml FLUSH ASDIRECTED PRN PRN Reason: Keep Vein Open Last Admin: 08/02/19 08:53 Dose: 10 ml Thrombin (Thrombin-Jmi) 20,000 unit .XX .STK-MED ONE Stop: 07/29/19 13:47 Last Admin: 07/29/19 13:46 Dose: 20,000 unit Thrombin (Recothrom) 15,000 unit .XX .STK-MED ONE Stop: 07/29/19 12:01 Last Admin: 07/29/19 12:00 Dose: 15,000 unit - Exam General: Alert, Oriented, Cooperative, Mild Distress HEENT: Pupils Equal, Pupils Reactive, EOMI, Mucous Membr. Moist/[place] Neck: Supple, Trachea Midline Lungs: Normal Respiratory Effort Back Exam: Decreased Range of Motion, Paraspinal Tenderness Extremities: Normal Inspection, No Pedal Edema, Normal Capillary Refill Peripheral Pulses: 2+: Dorsalis Pedis (L), Dorsalis Pedis (R) Skin: Warm, Dry, Intact Wound/Incisions: Healing Well, Dressing Dry and Intact, No Drainage Neurological: No New Focal Deficit Psy/Mental Status: Alert, Normal Affect, Normal Mood Sepsis Event Note - Evaluation Sepsis Screening Result: No Definite Risk - Focused Exam Vital Signs: Vital Signs Temp Pulse Pulse Resp BP BP Pulse Ox 08/02/19 08:55 120/58 L 08/02/19 08:54 82 120/58 L 08/02/19 04:00 98.1 F 73 17 133/76 98 Date Exam was Performed: 08/02/19 Time Exam was Performed: 12:54 - Problem List & Annotations (1) Back pain SNOMED Code(s): 350950120 Code(s): M54.9 - DORSALGIA, UNSPECIFIED Status: Acute Current Visit: Yes Qualifiers: Back pain location: low back pain Chronicity: acute Back pain laterality : midline Sciatica presence: without sciatica Qualified Code(s): M54.5 - Low back pain (2) Fusion of lumbar spine SNOMED Code(s): 755436523 Code(s): M43.26 - FUSION OF SPINE, LUMBAR REGION Status: Acute Current Visit: Yes - Problem List Review Problem List Initiated/Reviewed/Updated: Yes - My Orders Last 24 Hours: My Active Orders 08/02/19 11:14 ALPRAZolam [Xanax] 0.5 mg PO Q8H PRN 08/02/19 20:00 Vancomycin 1.25 gm Sodium Chloride 0.9% [Normal Saline (AdvBag)] 250 ml IV Q12H 08/03/19 07:30 VANCOMYCIN TROUGH [CHEM] Timed - Plan Plan:: aassessment: 53-year-old femalepostoperative day #3 revision L4-S1 fusion Plan: #1 neurogenic bladder post op: Dr. Huber will look over meds #2 continue physical therapy and occupational therapy #3 continue IV antibiotics #4 we will keep the patient until have 3 days of negative blood cultures. We will plan on discharging the patient on Monday. We will keep her on IV vancomycinuntil we have 3 days of negative blood cultures.
[2019-08-02] MEDS: Magnesium Hydroxide 400 MG/5 ML Susp 30 ML Cup PO PRN (16:38)
[2019-08-02] MEDS ORDERED: LORazepam 1 MG Tab PO SCH (18:00)
[2019-08-02] MEDS: LORazepam 1 MG Tab PO SCH (20:59)
[2019-08-03] MEDS: LORazepam 1 MG Tab PO SCH ×2 (02:48→09:27)
[2019-08-03] MEDS: Acetaminophen 500 MG Tab PO SCH ×2 (04:16→09:33)
[2019-08-03] MEDS: Acetaminophen/oxyCODONE 325-5 MG Tab PO PRN ×2 (05:54→11:11)
[2019-08-03] MEDS ORDERED: DULoxetine 30 MG Cap PO ONE (08:00)
[2019-08-03] MEDS: DULoxetine 60 MG Cap PO SCH (09:28)
[2019-08-03] MEDS: Gabapentin 600 MG Tab PO SCH (09:31)
[2019-08-03] MEDS: LINZESS 290 MCG CAPSULE PO SCH (09:32)
[2019-08-03] MEDS: amLODIPine 2.5 MG Tab PO SCH (09:34)
[2019-08-03] MEDS: Atenolol 50 MG Tab PO SCH (09:34)
--- NOTE | 2019-08-03 10:13 | PCM.DCSUM1 ---
Discharge Summary - Hospital Course HPI Initial Comments: 53 yo female s/p L4-S1 revision posterior lumbar fusion - Discharge Data Discharge Date: 08/03/19 Discharge Disposition: Home, Self-Care 01 Condition: Good - Referral to Home Health Primary Care Physician: Prasanna Appiah PA-C - Discharge Diagnosis/Problem(s) (1) Back pain SNOMED Code(s): 613886054 ICD Code: M54.9 - DORSALGIA, UNSPECIFIED Status: Acute Current Visit: Yes Qualifiers: Back pain location: low back pain Chronicity: acute Back pain laterality : midline Sciatica presence: without sciatica Qualified Code(s): M54.5 - Low back pain (2) Fusion of lumbar spine SNOMED Code(s): 451121725 ICD Code: M43.26 - FUSION OF SPINE, LUMBAR REGION Status: Acute Current Visit: Yes - Patient Summary/Data Operative Procedure(s) Performed: 1) posterolateral fusion L4-5, L5-S1. 2) hardware placement posterior L4-5, L5-S1. 3) laminectomy L4-5. 4) bilateral facetectomy L4-5 Complications: none Consults: Consultations 07/29/19 09:26 OT Evaluation and Treatment [CONS] Routine Please Evaluate and Treat. OT Reason for Consult: Strengthening This query below is only for informational purposes and is not editable. Admission Diagnosis/Problem: Lumbar spinal fusion PT Evaluation and Treatment [CONS] Routine Please Evaluate and Treat. PT Reason for Consult: Strengthening This query below is only for informational purposes and is not editable. Admission Diagnosis/Problem: Lumbar spinal fusion Respiratory Care Assess and Treatment [CONS] Routine Comment: Physician Instructions: Post-op Pneumonia Prevention Recommended Follow-up Testing/Procedures: f/u september 18 in [place] with Dr. Nuñez [facility] Course: Developed temp 102.5 pod 2, was started on abx after blood cx. after three days of no growth dc to home uneventful - Patient Instructions Diet: Usual Diet as Tolerated Activity: Apply Ice, Full Weight Bearing, No Strenuous Activities Driving: Do Not Drive Showering/Bathing: May Shower Wound/Incision Care: Keep Operative Site/Wound Site Clean and Dry Wound/Incision, Other: remove wound vac monday, replace with aquacell for five days Notify Provider of: Fever, Increased Pain, Swelling and Redness, Drainage, Nausea and/or Vomiting - Discharge Plan *PRESCRIPTION DRUG MONITORING PROGRAM REVIEWED*: Yes *COPY OF PRESCRIPTION DRUG MONITORING REPORT IN PATIENT NELSON: No Prescriptions/Med Rec: Acetaminophen/oxyCODONE [Percocet 325-5 MG] 1 tab PO Q6HR #28 tablet Home Medications: Home Meds Atenolol [Tenormin] 50 mg PO DAILY 07/25/19 [History] amLODIPine [Norvasc] 2.5 mg PO DAILY 07/25/19 [History] Albuterol [Ventolin HFA] 2 puff PO Q4HR PRN 07/29/19 [History] Clindamycin HCl 150 mg PO TID 07/29/19 [History] DULoxetine [Cymbalta] 60 mg PO DAILY 07/29/19 [History] Gabapentin [Neurontin] 600 mg PO TID 07/29/19 [History] Linaclotide [Linzess] 290 mcg PO DAILY 07/29/19 [History] Varenicline [Chantix] 1 mg PO BID 07/29/19 [History] Acetaminophen/oxyCODONE [Percocet 325-5 MG] 1 tab PO Q6HR #28 tablet 08/03/19 [ Rx] Patient Handouts: Fall Prevention in Hospitals, Adult, Preventing Problems After Surgery, Venous Thromboembolism Prevention - Discharge Summary/Plan Comment DC Time >30 min.: No - General Info Date of Service: 08/03/19 Functional Status: Reports: Pain Controlled, Tolerating Diet, Ambulating, Urinating - Review of Systems General: Reports: No Symptoms HEENT: Reports: No Symptoms Pulmonary: Reports: No Symptoms Cardiovascular: Reports: No Symptoms Gastrointestinal: Reports: No Symptoms Genitourinary: Reports: No Symptoms Musculoskeletal: Reports: Back Pain Skin: Reports: No Symptoms Neurological: Reports: No Symptoms Psychiatric: Reports: No Symptoms - Patient Data Vitals - Most Recent: Last Vital Signs Temp 97.7 F 08/02/19 16:00 Pulse 82 08/03/19 09:34 Resp 16 08/03/19 00:00 BP 143/76 H 08/03/19 09:34 Pulse Ox 98 08/03/19 00:00 Weight - Most Recent: 127 lb 11.2 oz I&O - Last 24 hours: Intake & Output 08/02/19 08/03/19 08/03/19 22:59 06:59 14:59 Intake Total 650 Output Total 525 Balance 125 Lab Results - Last 24 hrs: Laboratory Results - last 24 hr 08/02/19 08/03/19 Range/Units 10:20 07:50 Urine Color Yellow (YELLOW) Urine Appearance Clear (CLEAR) Urine pH 5.0 (5.0-6.5) Ur Specific [place] 1.010 (1.010-1.025) Urine Protein Negative (NEGATIVE) mg/dL Urine Glucose (UA) Normal (NORMAL) mg/dL Urine Ketones 15 H (NEGATIVE) mg/dL Urine Occult Blood Moderate H (NEGATIVE) Urine Nitrite Negative (NEGATIVE) Urine Bilirubin Negative (NEGATIVE) Urine Urobilinogen Normal (NEGATIVE) mg/dL Ur Leukocyte Esterase Negative (NEGATIVE) Urine RBC 10-20 H (0-5) Urine WBC 0-5 (0-5) Ur Squamous Epith Cells Occasional (NS,R,O) Urine Bacteria Few H (NS) Vancomycin Trough 16.6 H (<0.8) ug/mL ROMAN Results - Last 24 hrs: Microbiology 07/31/19 07:25 Aerobic Blood Culture - Preliminary Blood NO GROWTH AFTER 3 DAYS Anaerobic Blood Culture - Preliminary NO GROWTH AFTER 3 DAYS 07/31/19 07:20 Aerobic Blood Culture - Preliminary Blood NO GROWTH AFTER 3 DAYS Anaerobic Blood Culture - Preliminary NO GROWTH AFTER 3 DAYS Med Orders - Current: Current Medications Acetaminophen (Tylenol Extra Strength) 500 mg PO Q6H [facility] Last Admin: 08/03/19 09:33 Dose: 500 mg Albuterol (Ventolin Hfa) 0 gm INH Q4H PRN PRN Reason: Wheezing Amlodipine Besylate (Norvasc) 2.5 mg PO DAILY [facility] Last Admin: 08/03/19 09:34 Dose: 2.5 mg Atenolol (Tenormin) 50 mg PO DAILY [facility] Last Admin: 08/03/19 09:34 Dose: 50 mg Gabapentin (Neurontin) 600 mg PO TID [facility] Last Admin: 08/03/19 09:31 Dose: 600 mg Vancomycin HCl 1.25 gm/ Sodium (Chloride) 250 mls @ 166.667 mls/hr IV Q12H [facility] Last Admin: 08/03/19 09:31 Dose: 166.667 mls/hr Lorazepam (Ativan) 1 mg PO Q6H [facility] Last Admin: 08/03/19 09:27 Dose: 1 mg Magnesium Hydroxide (Milk Of Magnesia) 30 ml PO BID PRN PRN Reason: Constipation Last Admin: 08/02/19 16:38 Dose: 30 ml Naloxone HCl (Narcan) 0.2 mg IVPUSH ONETIME PRN PRN Reason: Oversedation Linzess 290 Mcg (Capsule) 0 each PO DAILY [facility] Last Admin: 08/03/19 09:32 Dose: 1 each Oxycodone/Acetaminophen (Percocet 325-5 Mg) 1 tab PO Q4H PRN PRN Reason: moderate pain 4-6 Last Admin: 08/03/19 05:54 Dose: 1 tab Senna (Senna) 8.6 mg PO BID PRN PRN Reason: Constipation Last Admin: 08/01/19 18:06 Dose: 8.6 mg Vancomycin HCl (Vancomycin) 1 gm IV .PHARMACY TO DOSE [facility]) [facility] Last Admin: 08/03/19 09:31 Dose: 1 mg Zolpidem Tartrate (Ambien) 5 mg PO BEDTIME PRN PRN Reason: Sleep Last Admin: 08/02/19 02:00 Dose: 5 mg Discontinued Medications Acetaminophen (Tylenol Extra Strength) 1,000 mg PO ONETIME ONE Stop: 07/29/19 07:01 Last Admin: 07/29/19 08:58 Dose: 1,000 mg Alprazolam (Xanax) 0.5 mg PO Q8H PRN PRN Reason: Anxiety Last Admin: 08/02/19 11:47 Dose: 0.5 mg Cefazolin Sodium (Ancef) 1 gm IVPUSH Q8H [facility] Stop: 07/30/19 02:01 Last Admin: 07/30/19 01:59 Dose: 1 gm Ropivacaine 49.25 ml/Ketorolac Tromethamine 30 mg/Epinephrine HCl 0.5 mg/ Clonidine HCl 80 mcg/ Sodium Chloride 48.45 ml 0 ml INJECT ASDIRECTED [facility] Last Admin: 07/29/19 12:20 Dose: 100 syringe Tranexamic Acid 3,000 mg/ (Sodium Chloride 100 ml) 0 mg IRR ONETIME ONE Stop: 07/29/19 09:01 Last Admin: 07/29/19 12:23 Dose: 100 irr Duloxetine HCl (Cymbalta) 30 mg PO ONETIME ONE Stop: 08/03/19 08:01 Last Admin: 08/03/19 09:38 Dose: 30 mg Duloxetine HCl (Cymbalta) 60 mg PO DAILY [facility] Last Admin: 08/03/19 09:28 Dose: Not Given Gabapentin (Neurontin) 300 mg PO ONETIME ONE Stop: 07/29/19 07:01 Last Admin: 07/29/19 08:58 Dose: 300 mg Vancomycin HCl 1.25 gm/ Sodium (Chloride) 250 mls @ 166.667 mls/hr IV Q12H [facility] Last Admin: 08/02/19 08:11 Dose: 166.667 mls/hr Cefazolin Sodium/Dextrose 2 gm (/ Premix) 50 mls @ 100 mls/hr IV ONETIME ONE Stop: 07/29/19 09:29 Lactated Ringer's (Ringers, Lactated) 1,000 mls @ 125 mls/hr IV ASDIRECTED [facility] Last Admin: 07/30/19 11:39 Dose: 125 mls/hr Cefazolin Sodium/Dextrose 2 gm (/ Premix) 50 mls @ 100 mls/hr IV ONETIME ONE Stop: 07/29/19 09:29 Last Admin: 07/29/19 09:58 Dose: 100 mls/hr Vancomycin HCl (Vancomycin 1 Gm/200 Ml In D5w) 200 mls @ 200 mls/hr IV Q12H [facility] Last Admin: 08/01/19 08:41 Dose: 200 mls/hr Sodium Chloride (Normal Saline) 250 mls @ 100 mls/hr IV ASDIRECTED [facility] Sodium Chloride (Normal Saline) 1,000 mls @ 125 mls/hr IV ASDIRECTED [facility] Last Admin: 08/01/19 07:05 Dose: 125 mls/hr Influenza Virus Vaccine (Fluzone Quad [id number] Syringe) 60 mcg IM .ONCE ONE Stop: 07/29/19 10:01 Ketorolac Tromethamine (Toradol) 30 mg IVPUSH Q8H [facility] Stop: 07/29/19 23:16 Last Admin: 07/29/19 23:18 Dose: 30 mg Lorazepam (Ativan) 1 mg PO Q6H [facility] Lorazepam (Ativan) 1 mg PO Q6H PRN PRN Reason: Anxiety Last Admin: 08/01/19 14:43 Dose: 1 mg Morphine Sulfate (Morphine) 2 mg IVPUSH Q2H PRN PRN Reason: PAIN Last Admin: 08/01/19 03:23 Dose: 2 mg Linzess 290 Mcg (Capsule) 0 each PO DAILY@0600 [facility] Last Admin: 08/01/19 05:43 Dose: 1 each Ondansetron HCl (Zofran) 8 mg IVPUSH Q4H PRN PRN Reason: Nausea/Vomiting Scopolamine (Transderm-Scop) 1.5 mg TRDERM ONETIME ONE Stop: 07/29/19 07:01 Last Admin: 07/29/19 08:58 Dose: 1.5 mg Sodium Chloride (Saline Flush) 10 ml FLUSH ASDIRECTED PRN PRN Reason: Keep Vein Open Last Admin: 08/02/19 08:53 Dose: 10 ml Thrombin (Thrombin-Jmi) 20,000 unit .XX .STK-MED ONE Stop: 07/29/19 13:47 Last Admin: 07/29/19 13:46 Dose: 20,000 unit Thrombin (Recothrom) 15,000 unit .XX .STK-MED ONE Stop: 07/29/19 12:01 Last Admin: 07/29/19 12:00 Dose: 15,000 unit - Exam General: Reports: Alert, Oriented, Mild Distress HEENT: Reports: Pupils Equal, Pupils Reactive, EOMI, Mucous Membr. Moist/[place] Neck: Reports: Supple, Trachea Midline Lungs: Reports: Clear to Auscultation, Normal Respiratory Effort Back Exam: Reports: Paraspinal Tenderness Skin: Reports: Warm, Dry, Intact Wound/Incisions: Reports: Healing Well, Dressing Dry and Intact, No Drainage, Erythema Psy/Mental Status: Reports: Alert, Normal Affect, Normal Mood Discharge Operative/Procedures - Procedures Performed Operations: revision posterior lumbar fusion L4-S1 *Q Meaningful Use (DIS) - VTE *Q VTE Pharmacological Contraindications *Q: Risk of Bleeding
--- NOTE | 2019-08-05 08:55 | PN ---
DATE SEEN: 08/02/2019 HISTORY: Pamela is a 53-year-old woman who underwent lumbar spine fusion by Dr. Nuñez on 07/29/2019. Postoperatively, she developed a fever and has had urinary retention. She states that this has been a problem with past surgeries to where she had to be catheterized up to 3 times postop before her bladder would start to work. She has been catheterized once now and over the subsequent 6 hours, has not been able to void. PHYSICAL EXAMINATION: GENERAL: She is alert. She is up walking and appears comfortable. VITAL SIGNS: Blood pressure 104/70, pulse 79, temp 97, respirations 18. MOTOR: Gait appears symmetric. LABORATORY DATA: Hemoglobin 9.4. Urinalysis showed 10-20 red cells, no white cells. ASSESSMENT: Urinary retention, multifactorial. PLAN: At this time, we will stop her Cymbalta by giving half dose tomorrow morning and then quit altogether. We will also straight cath her up to 2 more times before deciding if she needs indwelling Prabhakar. We will follow closely. /[id number] VANE/JULIOL
== END 2019-08-03 13:25 | disposition home or self-care (01) | DRG 460 ==
LOC: FB.MS 07:11
PROVIDERS: ADMIT Orthopaedic Surgery; ATTEND Orthopaedic Surgery
PROC: 30233N1 Transfusion of Nonautologous Red Blood Cells into Peripheral Vein, Percutaneous Approach (ICD-10-PCS; principal; 2019-07-29)
PROC: 0SG1071 Fusion of 2 or more Lumbar Vertebral Joints with Autologous Tissue Substitute, Posterior Approach, Posterior Column, Open Approach (ICD-10-PCS; 2019-07-29)
PROC: 01NB0ZZ Release Lumbar Nerve, Open Approach (ICD-10-PCS; 2019-07-29)
DX: M48.061 Spinal stenosis, lumbar region without neurogenic claudication (principal); M54.16 Radiculopathy, lumbar region; M43.26 Fusion of spine, lumbar region; K59.09 Other constipation; I10 Essential (primary) hypertension; F12.90 Cannabis use, unspecified, uncomplicated; F32.9 Major depressive disorder, single episode, unspecified; F41.9 Anxiety disorder, unspecified; G89.29 Other chronic pain; M54.5 Low back pain; K21.9 Gastro-esophageal reflux disease without esophagitis; M79.7 Fibromyalgia; K27.9 Peptic ulcer, site unspecified, unspecified as acute or chronic, without hemorrhage or perforation; N31.9 Neuromuscular dysfunction of bladder, unspecified; R50.82 Postprocedural fever; D64.9 Anemia, unspecified; R33.9 Retention of urine, unspecified; Z98.51 Tubal ligation status; Z98.890 Other specified postprocedural states; Z98.1 Arthrodesis status; Z79.899 Other long term (current) drug therapy; Z87.891 Personal history of nicotine dependence; Z88.1 Allergy status to other antibiotic agents; Z91.09 Other allergy status, other than to drugs and biological substances; Z90.710 Acquired absence of both cervix and uterus
CPT/HCPCS: 36415; 36430; 71045; 76000; 80048; 80202; 81001; 83605; 85025; 85048; 86140; 86850; 86900; 86901; 86920; 86922; 87040; 94150; 97116-GP; 97162-GP; 97165-GO; 97530-GO; 97535-GO; A9270-GY; J0171; J0330; J0690; J0735; J1100; J1170; J1885; J2250; J2270; J2370; J2405; J2704; J2710; J2795; J3370; J3490; J7030; J7050; J7120; P9016; P9045